=== PATIENT | female | born 1940 | race African-American/Black ===

== ENCOUNTER 2017-08-31 11:53 | Inpatient (IN) | payer MEDICARE, OTHER ==
[2017-08-31 12:54] LABS: ABSOLUTE EOSINOPHILS # (AUTO) 0.2 10^3/uL (0.0-0.6); ABSOLUTE LYMPHOCYTES (AUTO) 2.1 10^3/uL (0.5-4.7); ABSOLUTE MONOCYTES (AUTO) 0.6 10^3/uL (0.1-1.4); ABSOLUTE NEUT (AUTO) 3.4 10^3/uL (1.7-8.2); BASOPHILS % (AUTO) 0.3 % (0-2); EOSINOPHILS % (AUTO) 2.7 % (0-6); HEMATOCRIT 37.4 % (36.0-47.0); HEMOGLOBIN 12.9 g/dL (12.0-15.5); HGB HCT DIFFERENCE 1.3; LYMPHOCYTES % (AUTO) 33.1 % (13-45); MEAN CORPUSCULAR HEMOGLOBIN 31.9 pg (27.0-33.4); MEAN CORPUSCULAR HGB CONC 34.4 g/dL (32.0-36.0); MEAN CORPUSCULAR VOLUME 93 fl (80-97); MONOCYTES % (AUTO) 9.5 % (3-13); RED BLOOD COUNT 4.04 10^6/uL (3.72-5.28); RED CELL DISTRIBUTION WIDTH 15.5 % (11.5-14.0); SEGMENTED NEUTROPHILS % (AUTO) 54.4 % (42-78); WHITE BLOOD COUNT 6.2 10^3/uL (4.0-10.5)
[2017-08-31 13:03] LABS: ALANINE AMINOTRANSFERASE 22 U/L (9-52); ALBUMIN 3.6 g/dL (3.5-5.0); ALKALINE PHOSPHATASE 95 U/L (38-126); ANION GAP 15 (5-19); ASPARTATE AMINO TRANSFERASE 21 U/L (14-36); BILIRUBIN,DIRECT 0.4 mg/dL (0.0-0.4); BILIRUBIN,TOTAL 0.5 mg/dL (0.2-1.3); BLOOD UREA NITROGEN 12 mg/dL (7-20); CALCIUM 11.7 mg/dL (8.4-10.2); CARBON DIOXIDE 30 mmol/L (22-30); CHLORIDE 103 mmol/L (98-107); CREATINE KINASE 30 U/L (30-135); CREATININE RESULT 0.96 mg/dL (0.52-1.25); GLUCOSE 105 mg/dL (75-110); POTASSIUM 3.6 mmol/L (3.6-5.0); SODIUM 148.1 mmol/L (137-145); TOTAL PROTEIN 9.8 g/dL (6.3-8.2)
--- NOTE | 2017-08-31 13:07 | ER Document Report ---
ED Respiratory Problem - General Mode of Arrival: Ambulatory Information source: Patient TRAVEL OUTSIDE OF THE [place] IN LAST 30 DAYS: No <NATHALY REIS - Last Filed: 08/31/17 13:02> <JOSEFA BALDWIN - Last Filed: 08/31/17 15:50> - General Chief Complaint: Shortness Of Breath Stated Complaint: SHORTNESS OF BREATH Time Seen by Provider: 08/31/17 12:49 Notes: Patient is a 77-year-old male who presents to the emergency department today with complaints of shortness of breath. Patient states she was seen at [facility] urgent care on August 23 for diffuse muscle spasms and was diagnosed with pneumonia and put on Augmentin. Patient states she has been short of breath since his diagnosis. Patient states she recently had a back injection for her "muscle spasms". Patient states she has continued to have these muscle spasms. Patient is a poor historian so history is limited. (NATHALY REIS) - Related Data Allergies/Adverse Reactions: iodine Allergy (Intermediate, Verified 08/31/17 12:14) Past Medical History - General Information source: Patient - Social History Smoking Status: Never Smoker Cigarette use (# per day): No Chew tobacco use (# tins/day): No Frequency of alcohol use: None Drug Abuse: None Lives with: Family Family History: Reviewed & Not Pertinent Pulmonary Medical History: Reports: Hx Pneumonia Surgical Hx: Negative <NATHALY REIS - Last Filed: 08/31/17 13:02> Review of Systems - Review of Systems Constitutional: No symptoms reported EENT: No symptoms reported Cardiovascular: No symptoms reported Respiratory: See HPI, Short of breath Gastrointestinal: No symptoms reported Genitourinary: No symptoms reported Female Genitourinary: No symptoms reported Musculoskeletal: See HPI, Muscle stiffness Skin: No symptoms reported Hematologic/Lymphatic: No symptoms reported Neurological/Psychological: No symptoms reported -: Yes All other systems reviewed and negative <NATHALY REIS - Last Filed: 08/31/17 13:02> Physical Exam <NATHALY REIS - Last Filed: 08/31/17 13:02> - Respiratory Breath sounds: Rhonchi - The patient does have some rhonchi in the lower lung gonzales when she coughs. There also seems to be some E-A type changes noted more in the right base than the left. <DENNYJOSEFA - Last Filed: 08/31/17 15:50> - Vital signs Vitals: BP 138/76 H 08/31/17 12:10 - Notes Notes: Physical Exam: General: Alert, appears age appropriate. HEENT: Normocephalic. Atraumatic. PERRL. Extraocular movements intact. Oropharynx clear. Neck: Supple. Non-tender. Respiratory: No respiratory distress. Clear and equal breath sounds bilaterally. Cardiovascular: Regular rate and rhythm. Abdominal: Normal Inspection. Non-tender. No distension. Normal Bowel Sounds. Back: Non-tender. No deformity or step off. Extremities: Moves all four extremities. Upper extremities: Normal inspection. Normal ROM. Lower extremities: Normal inspection. No edema. Normal ROM. Neurological: Poor historian, baseline unknown. Normal speech. Psychological: Normal affect. Normal Mood. Skin: Warm. Dry. Normal color. (NATHALY REIS) Course - Laboratory Result Diagrams: 08/31/17 12:05 08/31/17 12:05 <NATHALY REIS - Last Filed: 08/31/17 13:02> - Laboratory Result Diagrams: 08/31/17 12:05 08/31/17 12:05 - Diagnostic Test Radiology reviewed: Image reviewed, Reports reviewed - Bilateral lower lobe airspace disease with small pleural effusions and mild cardiomegaly. - EKG Interpretation by De EKG shows normal: Sinus rhythm, [place], Intervals, QRS Complexes. abnormal: ST-T Waves - Inferior T wave abnormality Rate: Normal - 86 Rhythm: NSR [place]/QRS: Left axis deviation Voltage: Consistant with LVH When compared to previous EKG there are: Previous EKG unavailable - Consults Dr. Sheets Time consulted: 15:35 Consulted provider: will come to ER <DENNYJOSEFA - Last Filed: 08/31/17 15:50> - Vital Signs Vital signs: Temp Pulse Resp BP Pulse Ox 19 127/75 H 98 08/31/17 12:41 08/31/17 12:41 08/31/17 12:41 - Laboratory Laboratory results interpreted by me: 08/31/17 08/31/17 12:05 12:05 RDW 15.5 H Sodium 148.1 H Est GFR (Non-Af Amer) 56 L Calcium 11.7 H Total Protein 9.8 H Discharge <NATHALY REIS - Last Filed: 08/31/17 13:02> - Discharge Admitting Provider: Hospitalist Unit Admitted: Medical Floor <JOSEFA BALDWIN - Last Filed: 08/31/17 15:50> - Discharge Clinical Impression: Hypoxemia Pneumonia Qualifiers: Pneumonia type: due to unspecified organism Laterality: bilateral Lung location : lower lobe of lung Qualified Code(s): J18.9 - Pneumonia, unspecified organism Condition: Stable Disposition: ADMITTED INPATIENT Scribe Attestation: 08/31/17 15:50 I personally performed the services described in the documentation, reviewed and edited the documentation which was dictated to the scribe in my presence, and it accurately records my words and actions. (JOSEFA BALDWIN) Scribe Documentation - Scribe Written by Scribe:: Thomas Jauregui, 08/31/2017 1309 acting as scribe for :: Denny <NATHALY REIS - Last Filed: 08/31/17 13:02>
[2017-08-31 13:15] LABS: CREATINE KINASE MB 0.44 ng/mL (<4.55)
[2017-08-31 13:16] LABS: TROPONIN I < 0.012 ng/mL
--- NOTE | 2017-08-31 13:29 | RADIOLOGY REPORT (SQ) ---
EXAM DESCRIPTION: CHEST SINGLE VIEW COMPLETED DATE/TIME: 08/31/2017 12:52 pm REASON FOR STUDY: cp COMPARISON: None. EXAM PARAMETERS: NUMBER OF VIEWS: One view. TECHNIQUE: Single frontal radiographic view of the chest acquired. RADIATION DOSE: NA LIMITATIONS: Portable film FINDINGS: LUNGS AND PLEURA: Opacity at both the right and left lower hemithorax likely due to a comb ination of pleural effusions and bilateral lower lobe airspace disease. No pneumothorax MEDIASTINUM AND HILAR STRUCTURES: No masses. Contour normal. HEART AND VASCULAR STRUCTURES: Moderate cardiomegaly BONES: Osteoporotic HARDWARE: None in the chest. OTHER: No other significant finding. IMPRESSION: Opacified right and left lower hemithorax likely due to bilateral lower lobe airspace di sease and small pleural effusions TECHNICAL DOCUMENTATION: JOB ID: [id number]
[2017-08-31] MEDS ORDERED: LEVOFLOXACIN 750 MG/D5W RTU 750 MG/150 ML RTUPB IV ONE (15:24)
[2017-08-31] MEDS ORDERED: GUAIFENESIN SYRP 200 MG/10 ML UDC PO PRN (15:54)
[2017-08-31] MEDS ORDERED: LEVALBUTEROL HCL NEB 1.25 MG/3 ML AMPUL NEB PRN (15:54)
[2017-08-31 16:43] LABS: ARTERIAL BLOOD BASE EXCESS 5.4 mmol/L; ARTERIAL BLOOD O2 SATURATION 95.3 % (94-98)
[2017-08-31] MEDS ORDERED: BACLOFEN 10 MG TABLET PO PRN (17:03)
[2017-08-31] MEDS ORDERED: SENNOSIDES/DOCUSATE 8.6-50 MG 1 EACH TABLET PO PRN (17:15)
[2017-08-31] MEDS: ACETAMINOPHEN 325 MG TABLET PO PRN (17:19)
[2017-08-31] MEDS: FAMOTIDINE 20 MG TABLET PO SCH (21:35)
[2017-08-31] MEDS: GABAPENTIN 100 MG CAPSULE PO SCH (21:35)
[2017-09-01] MEDS ORDERED: 1/2 NORMAL SALINE 500 ML IV PRN (03:30)
[2017-09-01] MEDS ORDERED: 1/2 NORMAL SALINE 1,000 ML IV PRN (03:41)
--- NOTE | 2017-09-01 03:45 | PDOC H&P ---
History of Present Illness Admission Date/PCP: 08/31/17 Patient complains of: Shortness of breathe History of Present Illness: HEIDI PATE is a 77 year old female with no past medical history. At [place] urgent care, she was diagnosed and treated with Augmentin for which she completed the course yesterday. She went back there for a follow up and was told the pneumonia has not resolved and was told to come to [place] for further evaluation. Patient denies any fever or cough. Patient states she because short of breathe with activity today. She states ever since hearting her back earlier this year she has not been as active. She also noticed some swelling in her legs but states that happended after she was started on her antibiotics. Patient states that she does have some chest pain that shoots across and is sharp. It goes away quickly. She is not having any problems breathing or taking deep breathes. Per the ED is was sating in the 80's at urgent care, but she is maintaining her sats on 2 L of oxygen. She was given a dose of levaquin for bilateral airspace disease seen on chest X ray. Hospitalist called to admit patient for possible pneumonia. Past Medical History Cardiac Medical History: Reports: None Pulmonary Medical History: Reports: Pneumonia Musculoskeltal Medical History: Reports: Other - muscle spasms Past Surgical History Past Surgical History: Reports: Hysterectomy Social History Information Source: Patient Lives with: Family Smoking Status: Never Smoker Frequency of Alcohol Use: None Hx Recreational Drug Use: No Drugs: None - Advance Directive Resuscitation Status: Full Code Family History Family History: CAD Parental Family History Reviewed: No Children Family History Reviewed: No Sibling(s) Family History Reviewed.: No Medication/Allergy Home Medications: Acetaminophen [Tylenol Extra Strength] 1 tab PO Q6HP PRN 08/31/17 Amoxicillin/Potassium Clav [Augmentin 500-125 Tablet] 1 tab PO Q12 08/31/17 Calcium Carbonate/Vitamin D3 [Os-Mahamed 250 mg with Vitamin D 125 Units] 1 tab PO DAILY 08/31/17 Doans 2 tab PO Q6 08/31/17 L.acidoph,Paracasei, B.lactis [Probiotic] 1 cap PO DAILY 08/31/17 Allergies/Adverse Reactions: iodine Allergy (Intermediate, Verified 08/31/17 12:14) Review of Systems Constitutional: ABSENT: chills, fever(s), headache(s), weight gain, weight loss Eyes: ABSENT: visual disturbances Ears: ABSENT: hearing changes Cardiovascular: ABSENT: chest pain, dyspnea on exertion, edema, orthropnea, palpitations Respiratory: PRESENT: dyspnea. ABSENT: cough, hemoptysis Gastrointestinal: ABSENT: abdominal pain, constipation, diarrhea, hematemesis, hematochezia, nausea, vomiting Genitourinary: ABSENT: dysuria, hematuria Musculoskeletal: ABSENT: joint swelling Integumentary: ABSENT: rash, wounds Neurological: ABSENT: abnormal gait, abnormal speech, confusion, dizziness, focal weakness, syncope Psychiatric: ABSENT: anxiety, depression, homidical ideation, suicidal ideation Endocrine: ABSENT: cold intolerance, heat intolerance, polydipsia, polyuria Hematologic/Lymphatic: ABSENT: easy bleeding, easy bruising Physical Exam Vital Signs: Temp Pulse Resp BP Pulse Ox 19 127/75 H 98 08/31/17 12:41 08/31/17 12:41 08/31/17 12:41 General appearance: PRESENT: mild distress, well-developed Head exam: PRESENT: normocephalic Eye exam: PRESENT: conjunctival injection Ear exam: PRESENT: normal external ear exam Mouth exam: PRESENT: moist Neck exam: PRESENT: full ROM. ABSENT: carotid bruit, JVD, lymphadenopathy, thyromegaly Respiratory exam: PRESENT: clear to auscultation kim, crackles - at lung bases. ABSENT: rhonchi, wheezes Cardiovascular exam: PRESENT: RRR. ABSENT: diastolic murmur, rubs, systolic murmur Pulses: PRESENT: normal dorsalis pedis pul Vascular exam: PRESENT: normal capillary refill GI/Abdominal exam: PRESENT: normal bowel sounds, soft. ABSENT: distended, guarding, mass, organolmegaly, rebound, tenderness Rectal exam: PRESENT: deferred Extremities exam: PRESENT: full ROM, pedal edema. ABSENT: calf tenderness, clubbing Neurological exam: PRESENT: alert, awake, oriented to person, oriented to place , oriented to time, oriented to situation, CN II-XII grossly intact. ABSENT: motor sensory deficit Psychiatric exam: PRESENT: appropriate affect, normal mood. ABSENT: homicidal ideation, suicidal ideation Skin exam: PRESENT: dry, intact, warm. ABSENT: cyanosis, rash Results Laboratory Results: 08/31/17 12:05 08/31/17 12:05 08/31/17 08/31/17 12:05 12:05 WBC 6.2 RBC 4.04 Hgb 12.9 Hct 37.4 MCV 93 MCH 31.9 MCHC 34.4 RDW 15.5 H Plt Count 155 Seg Neutrophils % 54.4 Lymphocytes % 33.1 Monocytes % 9.5 Eosinophils % 2.7 Basophils % 0.3 Absolute Neutrophils 3.4 Absolute Lymphocytes 2.1 Absolute Monocytes 0.6 Absolute Eosinophils 0.2 Absolute Basophils 0.0 Sodium 148.1 H Potassium 3.6 Chloride 103 Carbon Dioxide 30 Anion Gap 15 BUN 12 Creatinine 0.96 Est GFR ( Amer) > 60 Est GFR (Non-Af Amer) 56 L Glucose 105 Calcium 11.7 H Total Bilirubin 0.5 AST 21 ALT 22 Alkaline Phosphatase 95 Total Protein 9.8 H Albumin 3.6 08/31/17 08/31/17 08/31/17 12:05 12:05 12:05 Creatine Kinase 30 CK-MB (CK-2) 0.44 Troponin I < 0.012 NT-Pro-B Natriuret Pep 125 Impressions: Chest X-Ray 08/31/17 12:23 IMPRESSION: Opacified right and left lower hemithorax likely due to bilateral lower lobe airspace disease and small pleural effusions Assessment & Plan - Diagnosis (1) Dyspnea on exertion Is this a current diagnosis for this admission?: Yes Plan: Patient states that this is new in nature. Patient has been less active over that last several month and reports some swelling of the feet. She is hypoxic and complains of intermittent chest pain. D dimer is elevated. Will check VQ scan. Patient has swelling with iodine therefore CTA chest cannot be done. Will also check venous dopplers as she report recent leg swelling. Will also check echo. Will start patient on therapeutic dosages of lovenox. Will need to follow up on patients weight and adjust dose accordingly. (2) Hypoxemia Is this a current diagnosis for this admission?: Yes Plan: Continue supplemental oxygen. VQ scan ordered to evaluate for PE. Patient cannot have CTA and patient swells when she is around shellfish. 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 Patient is seeing a recruitment specialist for injection. Patient is complaining of pain now. Will order low dose baclofen, tylenol and gabapentin for pain. Patient does not want anything stronger for pain. (4) Pneumonia Qualifiers: Pneumonia type: due to unspecified organism Laterality: bilateral Lung location: lower lobe of lung Qualified Code(s): J18.9 - Pneumonia, unspecified organism Is this a current diagnosis for this admission?: Yes Plan: Chest XR shows bilateral airspace disease. Patient has already completed a course of antibiotics with augmentin (last dose 08/30) and does not have any fever, cough or leukocytosis. Blood cultures were drawn and pending. Patient was given a dose of levaquin. Will not give any antibiotics. Will monitor of symptoms and treat if necessary. (5) Hypercalcemia Plan: Secondary to dehydration and supplement. Will give gentle hydration and encourage patient to drink. Will also give loop diuretic. Will check PTH and vitamin D. Alkphos is not elevated. Will also check phospherous level. (6) Hypernatremia Is this a current diagnosis for this admission?: Yes Plan: Due to dehydration. Fluid resuscitate and follow up chemistry. (7) Constipation Qualifiers: Constipation type: chronic idiopathic constipation Qualified Code(s): K59.04 - Chronic idiopathic constipation Is this a current diagnosis for this admission?: Yes Plan: Due to dehydration and hypercalcemia. Encourage po intake. Give some IV fluids. - Time Time Spent: 30 to 50 Minutes Medications reviewed and adjusted accordingly: Yes Anticipated discharge: Home Within: within 48 hours
[2017-09-01] MEDS: GABAPENTIN 100 MG CAPSULE PO SCH ×3 (06:57→21:28)
--- NOTE | 2017-09-01 07:51 | RADIOLOGY REPORT (SQ) ---
EXAM DESCRIPTION: NM LUNG PERFUSION SCAN COMPLETED DATE/TIME: 09/01/2017 7:43 am REASON FOR STUDY: SOB COMPARISON: Chest radiograph 08/31/2017 RADIONUCLIDE AND DOSE: 5.26 millicuries TC-99m MAA The route of agent administration: Intravenous TECHNIQUE: Eight views of the lungs acquired following injection of MAA. LIMITATIONS: None. FINDINGS: PERFUSION: Perfusion defects at both lung bases.. OTHER: No other significant finding. IMPRESSION: Indeterminate for pulmonary emboli. Profusion defects at both lung bases at the site of parenchymal opacities. TECHNICAL DOCUMENTATION: JOB ID: [id number] [employer]- All Rights Reserved
[2017-09-01 09:08] LABS: ANION GAP 11 (5-19); BLOOD UREA NITROGEN 12 mg/dL (7-20); CALCIUM 10.8 mg/dL (8.4-10.2); CARBON DIOXIDE 30 mmol/L (22-30); CHLORIDE 105 mmol/L (98-107); CREATININE RESULT 0.97 mg/dL (0.52-1.25); GLUCOSE 100 mg/dL (75-110); POTASSIUM 3.4 mmol/L (3.6-5.0); SODIUM 145.8 mmol/L (137-145)
[2017-09-01] MEDS: APIXABAN 5 MG TABLET PO SCH ×2 (09:33→18:16)
[2017-09-01] MEDS: FAMOTIDINE 20 MG TABLET PO SCH ×2 (09:34→21:28)
[2017-09-01] MEDS: LACTOBACILLUS ACIDOPHILUS 250 MG TAB PO SCH ×2 (09:35→18:16)
[2017-09-01] MEDS: SENNOSIDES/DOCUSATE 8.6-50 MG 1 EACH TABLET PO SCH ×2 (09:35→18:17)
[2017-09-01] MEDS ORDERED: APIXABAN 5 MG TABLET PO SCH (10:00)
[2017-09-01] MEDS ORDERED: CEFTRIAXONE 1 GM/D5W RTU 1 GM/50 ML RTUPB IV SCH (10:00)
[2017-09-01] MEDS ORDERED: ENOXAPARIN SODIUM INJ 80 MG/0.8 ML DISP.SYRIN SUBCUT SCH (10:00)
[2017-09-01] MEDS ORDERED: FUROSEMIDE INJ/PF 20 MG/2 ML SDV IV SCH ×3 (10:00→11:37)
[2017-09-01] MEDS ORDERED: AZITHROMYCIN 250 MG TABLET PO SCH (10:00)
[2017-09-01] MEDS ORDERED: FUROSEMIDE 20 MG TABLET PO SCH (10:00)
[2017-09-01] MEDS ORDERED: BACLOFEN 10 MG TABLET PO SCH (10:00)
[2017-09-01] MEDS ORDERED: FUROSEMIDE INJ/PF 40 MG/4 ML SDV IV SCH (10:00)
[2017-09-01 10:51] LABS: APPEARANCE,URINE CLEAR; BILIRUBIN,URINE NEGATIVE (NEGATIVE); GLUCOSE, URINE NEGATIVE (NEGATIVE); KETONES,URINE NEGATIVE (NEGATIVE); LEUKOCYTE ESTERASE,URINE NEGATIVE (NEGATIVE); NITRITE,URINE NEGATIVE (NEGATIVE); PROTEIN,URINE NEGATIVE (NEGATIVE); URINE SPECIFIC GRAVITY 1.009; UROBILINOGEN,URINE NEGATIVE mg/dL (<2.0)
[2017-09-01] MEDS ORDERED: MAGNESIUM HYDROXIDE SUSP 30 ML UDCUP PO ONE (17:10)
--- NOTE | 2017-09-01 17:18 | PDOC PROGRESS REPORT ---
Subjective Progress Note for:: 09/01/17 Subjective:: Patient seen earlier today on morning rounds with daughter and son at bedside. Patient has not had a bowel movement since Saturday of last week. Patient denied any antecedent illness, fever, chills, purulent sputum before admission. Patient reports white sputum. Patient admits to dyspnea on exertion. Patient denies chest pain, shortness of breath, abdominal pain, nausea, vomiting , fevers, chills, diarrhea, headache. Physical Exam Vital Signs: Temp Pulse Resp BP Pulse Ox 98.4 F 76 20 112/61 97 09/01/17 12:04 09/01/17 12:04 09/01/17 12:04 09/01/17 12:04 09/01/17 12:05 Pulse Oximeter Continuous Start: 08/31/17 15: 55 Freq: RTQ4 Status: Active Document 09/01/17 12:05 TPO (Rec: 09/01/17 12:15 TPO [email or web address]) Pulse Oximetry Assessment Oxygen Saturation (92-100) 97 Oxygen Flow Rate (L/min) 2 Oxygen Delivery Method Nasal Cannula Fraction of Inspired Oxygen (FIO2) 28 Equipment Usage Equipment in Use Continuous SpO2 Machine # 13 Intake & Output 08/31/17 09/01/17 09/02/17 06:59 06:59 06:59 Output Total 800 Balance -800 Weight 69.6 kg Exam: General: Awake alert and oriented x3, no acute respiratory distress HEENT: AT/NC, PERRL, EOMI, oropharynx is moist, pink, no scleral icterus, no conjunctival injection Neck: No JVD, trachea midline Chest: limited by pleuritic pain, bilateral crackles CV: Regular rate and rhythm, normal S1 and S2, no rub, or gallop Abdomen: Soft, nontender to palpation, nondistended, hypoactive bowel sounds; no rebound, rigidity, or guarding Extremities: No cyanosis, clubbing; trace edema Neuro: Cranial nerves II through XII are grossly intact without focal deficits; awake alert and oriented x3 Psych: Normal mood and affect Results Laboratory Results: 09/01/17 08:36 09/01/17 09/01/17 09/01/17 08:36 08:36 10:08 Sodium 145.8 H Potassium 3.4 L Chloride 105 Carbon Dioxide 30 Anion Gap 11 BUN 12 Creatinine 0.97 Est GFR ( Amer) > 60 Est GFR (Non-Af Amer) 56 L Glucose 100 Calcium 10.8 H Ionized Calcium Rocio 1.31 H Urine Color YELLOW Urine Appearance CLEAR Urine pH 6.0 Ur Specific [place] 1.009 Urine Protein NEGATIVE Urine Glucose (UA) NEGATIVE Urine Ketones NEGATIVE Urine Blood SMALL H Urine Nitrite NEGATIVE Ur Leukocyte Esterase NEGATIVE Urine WBC (Auto) 1 Urine RBC (Auto) 0 08/31/17 17:25 Troponin I < 0.012 Impressions: Chest X-Ray 08/31/17 12:23 IMPRESSION: Opacified right and left lower hemithorax likely due to bilateral lower lobe airspace disease and small pleural effusions Lung Scan-VQ NM 09/01/17 00:00 IMPRESSION: Indeterminate for pulmonary emboli. Profusion defects at both lung bases at the site of parenchymal opacities. Assessment & Plan - Diagnosis (1) Dyspnea on exertion Is this a current diagnosis for this admission?: Yes Plan: Concerned that this represents acute cor pulmonale or acute on chronic diastolic congestive heart failure. Repeat chest x-ray. Patient was treated as an outpatient for pneumonia, but patient has no associated symptomatology consistent with this. Have considered interstitial lung disease. (2) Hypercalcemia Is this a current diagnosis for this admission?: Yes Plan: Patient reports that she is taking a calcium supplement as an outpatient. Ionized calcium is elevated. Obtain PTH and intact PTH. Check vitamin D. (3) Hypernatremia Is this a current diagnosis for this admission?: Yes (4) Hypoxemia Is this a current diagnosis for this admission?: Yes Plan: Still concern exists for pulmonary embolus. Patient's VQ scan was indeterminate. Will perform a bilateral lower extremity ultrasound and if this is positive this will confirm her diagnosis. Continue Eliquis. However, if this is negative will consider pre-medicating for a CTA. (5) Muscle pain Is this a current diagnosis for this admission?: Yes Plan: Concerned that this is secondary to hypercalcemia. Consider Flexeril (6) Constipation Qualifiers: Constipation type: chronic idiopathic constipation Qualified Code(s): K59.04 - Chronic idiopathic constipation Is this a current diagnosis for this admission?: Yes Plan: We will give patient senna and Colace. Also milk of magnesia. - Time Time Spent with patient: 25-34 minutes Medications reviewed and adjusted accordingly: Yes
[2017-09-01] MEDS: FUROSEMIDE INJ/PF 40 MG/4 ML SDV IV SCH (18:16)
--- NOTE | 2017-09-01 20:23 | RADIOLOGY REPORT (SQ) ---
EXAM DESCRIPTION: VENOUS BILATERAL LOWER COMPLETED DATE/TIME: 09/01/2017 8:11 pm REASON FOR STUDY: indeterminate vq, hypoxia COMPARISON: None. TECHNIQUE: Dynamic and static wilburn scale and color images acquired of both lower extremity venous sy stems. Selected spectral images acquired with additional compression and augmentation maneuvers. Imag es stored on PACS. LIMITATIONS: None. FINDINGS: RIGHT LEG COMMON FEMORAL AND FEMORAL: Normal phasicity, compression and augmentation. No visualized echogenic m aterial on wilburn scale. No defects on color images. POPLITEAL: Normal compression and augmentation. No visualized echogenic material on wilburn scale. No de fects on color images. CALF VESSELS: Normal compression and augmentation. No visualized echogenic material on wilburn scale. No defects on color image. GSV AND SSV: Normal compression. No visualized echogenic material on wilburn scale. No defects on color images. ANY DEEP VENOUS INSUFFICIENCY: Not evaluated. ANY EVIDENCE OF POPLITEAL CYST: No. OTHER: No other significant finding. LEFT LEG COMMON FEMORAL AND FEMORAL: Normal phasicity, compression and augmentation. No visualized echogenic m aterial on wilburn scale. No defects on color images. POPLITEAL: Normal compression and augmentation. No visualized echogenic material on wilburn scale. No de fects on color images. CALF VESSELS: Normal compression and augmentation. No visualized echogenic material on wilburn scale. No defects on color images. GSV AND SSV: Normal compression. No visualized echogenic material on wilburn scale. No defects on color images. ANY DEEP VENOUS INSUFFICIENCY: Not evaluated. ANY EVIDENCE POPLITEAL CYST: No. OTHER: No other significant finding. IMPRESSION: NO EVIDENCE DVT OR SVT IN EITHER LEG. TECHNICAL DOCUMENTATION: JOB ID: [id number] [employer]- All Rights Reserved
--- NOTE | 2017-09-01 20:33 | RADIOLOGY REPORT (SQ) ---
EXAM DESCRIPTION: CHEST PA/LAT COMPLETED DATE/TIME: 09/01/2017 6:59 pm REASON FOR STUDY: ?chf v pna COMPARISON: None. EXAM PARAMETERS: NUMBER OF VIEWS: two views TECHNIQUE: Digital Frontal and Lateral radiographic views of the chest acquired. RADIATION DOSE: NA LIMITATIONS: none FINDINGS: LUNGS AND PLEURA: Bilateral lower lobe consolidation-atelectasis. Small bilateral pleural effusions. MEDIASTINUM AND HILAR STRUCTURES: Age-appropriate contour. HEART AND VASCULAR STRUCTURES: Cardiomegaly. BONES: No acute findings. HARDWARE: None in the chest. OTHER: No other significant finding. IMPRESSION: Bilateral lower lobe consolidation-atelectasis. Small bilateral pleural effusions. TECHNICAL DOCUMENTATION: JOB ID: [id number] [employer]- All Rights Reserved
[2017-09-01] MEDS: ACETAMINOPHEN 325 MG TABLET PO PRN (21:28)
[2017-09-02] MEDS ORDERED: FLUTICASONE NASAL SPRAY 50 MCG/SPRY 120 SPRAY/16 GM NASL ONE (06:15)
[2017-09-02] MEDS ORDERED: FLUTICASONE NASAL SPRAY 50 MCG/SPRY 120 SPRAY/16 GM ONE (06:48)
[2017-09-02] MEDS: GABAPENTIN 100 MG CAPSULE PO SCH ×3 (06:50→22:24)
[2017-09-02 07:46] LABS: HEMATOCRIT 33.1 % (36.0-47.0); HEMOGLOBIN 11.2 g/dL (12.0-15.5); HGB HCT DIFFERENCE 0.5; MEAN CORPUSCULAR HEMOGLOBIN 31.2 pg (27.0-33.4); MEAN CORPUSCULAR HGB CONC 33.7 g/dL (32.0-36.0); MEAN CORPUSCULAR VOLUME 93 fl (80-97); RED BLOOD COUNT 3.58 10^6/uL (3.72-5.28); RED CELL DISTRIBUTION WIDTH 15.5 % (11.5-14.0); WHITE BLOOD COUNT 5.8 10^3/uL (4.0-10.5)
[2017-09-02 08:25] LABS: ANION GAP 10 (5-19); BLOOD UREA NITROGEN 12 mg/dL (7-20); CALCIUM 10.5 mg/dL (8.4-10.2); CARBON DIOXIDE 34 mmol/L (22-30); CHLORIDE 100 mmol/L (98-107); CREATININE RESULT 0.97 mg/dL (0.52-1.25); GLUCOSE 109 mg/dL (75-110); PHOSPHORUS 3.8 mg/dL (2.5-4.5); POTASSIUM 3.6 mmol/L (3.6-5.0)
[2017-09-02] MEDS: SENNOSIDES/DOCUSATE 8.6-50 MG 1 EACH TABLET PO SCH ×2 (10:26→18:05)
[2017-09-02] MEDS: FAMOTIDINE 20 MG TABLET PO SCH ×2 (10:26→22:24)
[2017-09-02] MEDS: FUROSEMIDE INJ/PF 40 MG/4 ML SDV IV SCH ×2 (10:26→18:05)
[2017-09-02] MEDS: LACTOBACILLUS ACIDOPHILUS 250 MG TAB PO SCH ×2 (10:26→18:05)
[2017-09-02] MEDS ORDERED: ENOXAPARIN SODIUM INJ 80 MG/0.8 ML DISP.SYRIN SUBCUT ONE (10:45)
[2017-09-02] MEDS: ENOXAPARIN SODIUM INJ 80 MG/0.8 ML DISP.SYRIN SUBCUT SCH ×2 (11:42→22:24)
[2017-09-02] MEDS: ACETAMINOPHEN 325 MG TABLET PO PRN ×2 (13:08→18:34)
--- NOTE | 2017-09-02 16:57 | PDOC PROGRESS REPORT ---
Subjective Progress Note for:: 09/02/17 Subjective:: Patient seen earlier today on morning rounds with daughter at bedside. Patient has not had a bowel movement since Saturday of last week. Patient denied any antecedent illness, fever, chills, purulent sputum before admission. Patient reports white sputum. Patient admits to dyspnea on exertion. Patient was noted to have profound hypoxia with exertion. Patient denies chest pain, abdominal pain, nausea, vomiting, fevers, chills, diarrhea, headache. Physical Exam Vital Signs: Temp Pulse Resp BP Pulse Ox 98.2 F 80 18 114/59 L 99 09/02/17 12:00 09/02/17 12:00 09/02/17 12:00 09/02/17 12:00 09/02/17 16:00 Pulse Oximeter Continuous Start: 08/31/17 15: 55 Freq: RTQ4 Status: Active Document 09/02/17 16:00 LDA (Rec: 09/02/17 16:27 LDA [email or web address]) Pulse Oximetry Assessment Oxygen Saturation (92-100) 99 Oxygen Flow Rate (L/min) 4 Oxygen Delivery Method Nasal Cannula Equipment Usage Equipment in Use Continuous SpO2 Machine # 13 Intake & Output 09/01/17 09/02/17 09/03/17 06:59 06:59 06:59 Intake Total 350 Output Total 800 450 Balance -800 -100 Weight 69.6 kg Exam: General: Awake alert and oriented x3, no acute respiratory distress HEENT: AT/NC, PERRL, EOMI, oropharynx is moist, pink, no scleral icterus, no conjunctival injection Neck:+ JVD, trachea midline Chest: limited by pleuritic pain, bilateral crackles CV: Regular rate and rhythm, normal S1 and S2, no rub, or gallop Abdomen: Soft, tender to palpation midepigastrium, mildly distended, hypoactive bowel sounds; no rebound, rigidity, or guarding Extremities: No cyanosis, clubbing; trace edema Neuro: Cranial nerves II through XII are grossly intact without focal deficits; awake alert and oriented x3 Psych: Normal mood and affect Results Laboratory Results: 09/02/17 07:25 09/02/17 07:25 09/02/17 09/02/17 07:25 07:25 WBC 5.8 RBC 3.58 L Hgb 11.2 L Hct 33.1 L MCV 93 MCH 31.2 MCHC 33.7 RDW 15.5 H Plt Count 165 Sodium 144.0 Potassium 3.6 Chloride 100 Carbon Dioxide 34 H Anion Gap 10 BUN 12 Creatinine 0.97 Est GFR ( Amer) > 60 Est GFR (Non-Af Amer) 56 L Glucose 109 Calcium 10.5 H Phosphorus 3.8 08/31/17 17:25 Troponin I < 0.012 Impressions: Chest X-Ray 09/01/17 00:00 IMPRESSION: Bilateral lower lobe consolidation-atelectasis. Small bilateral pleural effusions. Lung Scan-VQ NM 09/01/17 00:00 IMPRESSION: Indeterminate for pulmonary emboli. Profusion defects at both lung bases at the site of parenchymal opacities. Venous Doppler Study 09/01/17 17:01 IMPRESSION: NO EVIDENCE DVT OR SVT IN EITHER LEG. Assessment & Plan - Diagnosis (1) Dyspnea on exertion Is this a current diagnosis for this admission?: Yes Plan: Concerned that this represents acute cor pulmonale or acute on chronic diastolic congestive heart failure. Repeat chest x-ray reveals atelectasis with effusions. Patient was treated as an outpatient for pneumonia, but patient has no associated symptomatology consistent with this. Have considered interstitial lung disease. Currently pending echo, but this if this is unrevealing will consider high-res CT of the chest without contrast. (2) Hypercalcemia Is this a current diagnosis for this admission?: Yes Plan: Patient reports that she is taking a calcium supplement as an outpatient. Ionized calcium is elevated. Pending PTH and intact PTH. Pending vitamin D. Improving with Lasix (3) Hypernatremia Is this a current diagnosis for this admission?: Yes (4) Hypoxemia Is this a current diagnosis for this admission?: Yes (5) Muscle pain Is this a current diagnosis for this admission?: Yes (6) Constipation Qualifiers: Constipation type: chronic idiopathic constipation Qualified Code(s): K59.04 - Chronic idiopathic constipation Is this a current diagnosis for this admission?: Yes - Time Time Spent with patient: 25-34 minutes Medications reviewed and adjusted accordingly: Yes
[2017-09-03 05:09] LABS: ABSOLUTE EOSINOPHILS # (AUTO) 0.2 10^3/uL (0.0-0.6); ABSOLUTE LYMPHOCYTES (AUTO) 2.4 10^3/uL (0.5-4.7); ABSOLUTE MONOCYTES (AUTO) 0.6 10^3/uL (0.1-1.4); ABSOLUTE NEUT (AUTO) 2.5 10^3/uL (1.7-8.2); BASOPHILS % (AUTO) 0.5 % (0-2); HEMATOCRIT 33.9 % (36.0-47.0); HEMOGLOBIN 11.7 g/dL (12.0-15.5); HGB HCT DIFFERENCE 1.2; LYMPHOCYTES % (AUTO) 41.8 % (13-45); MEAN CORPUSCULAR HEMOGLOBIN 31.7 pg (27.0-33.4); MEAN CORPUSCULAR HGB CONC 34.5 g/dL (32.0-36.0); MEAN CORPUSCULAR VOLUME 92 fl (80-97); RED CELL DISTRIBUTION WIDTH 15.5 % (11.5-14.0); SEGMENTED NEUTROPHILS % (AUTO) 43.7 % (42-78); WHITE BLOOD COUNT 5.6 10^3/uL (4.0-10.5)
[2017-09-03] MEDS: GABAPENTIN 100 MG CAPSULE PO SCH ×3 (05:23→21:15)
[2017-09-03 05:26] LABS: ANION GAP 10 (5-19); BLOOD UREA NITROGEN 15 mg/dL (7-20); CALCIUM 10.8 mg/dL (8.4-10.2); CARBON DIOXIDE 34 mmol/L (22-30); CHLORIDE 100 mmol/L (98-107); CREATININE RESULT 1.07 mg/dL (0.52-1.25); GLUCOSE 108 mg/dL (75-110); POTASSIUM 3.7 mmol/L (3.6-5.0)
[2017-09-03 08:13] LABS: VITAMIN D 25-HYDROXY 19.4 ng/mL (30.0-100.0)
[2017-09-03 09:09] LABS: APPEARANCE,URINE CLOUDY; BILIRUBIN,URINE NEGATIVE (NEGATIVE); GLUCOSE, URINE NEGATIVE (NEGATIVE); KETONES,URINE NEGATIVE (NEGATIVE); LEUKOCYTE ESTERASE,URINE NEGATIVE (NEGATIVE); NITRITE,URINE NEGATIVE (NEGATIVE); PROTEIN,URINE 30 mg/dL (NEGATIVE); URINE SPECIFIC GRAVITY 1.014; UROBILINOGEN,URINE NEGATIVE mg/dL (<2.0)
[2017-09-03] MEDS: ACETAMINOPHEN 325 MG TABLET PO PRN ×2 (10:15→21:15)
[2017-09-03] MEDS: LACTOBACILLUS ACIDOPHILUS 250 MG TAB PO SCH ×2 (10:16→17:05)
[2017-09-03] MEDS: FAMOTIDINE 20 MG TABLET PO SCH ×2 (10:16→21:15)
[2017-09-03] MEDS: SENNOSIDES/DOCUSATE 8.6-50 MG 1 EACH TABLET PO SCH ×2 (10:16→17:05)
[2017-09-03] MEDS: FUROSEMIDE INJ/PF 40 MG/4 ML SDV IV SCH ×2 (10:16→17:05)
[2017-09-03] MEDS: FLUTICASONE NASAL SPRAY 50 MCG/SPRY 120 SPRAY/16 GM NASL SCH (10:17)
[2017-09-03] MEDS: ENOXAPARIN SODIUM INJ 80 MG/0.8 ML DISP.SYRIN SUBCUT SCH ×2 (10:23→21:15)
--- NOTE | 2017-09-03 10:45 | XCELERA REPORT ---
[address] [address] Transthoracic Echocardiogram Report Name: HEIDI PATE Age: 77 yrs Gender: Female : 1940 Patient Status: Inpatient Patient Location: [address] [place] [address] Study Date: 09/02/2017 01:40 PM Height: 66 in Weight: 153 lb BSA: 1.8 m2 Procedure: A complete two-dimensional transthoracic echocardiogram was performed (2D, M-mode, spectral and color flow Doppler). The study was technically difficult with many images being suboptimal in quality. Reason For Study: SOB Ordering Physician: OBI LORA Performed By: Alxe Hammond Interpretation Summary The study was technically difficult with many images being suboptimal in quality. The left ventricular ejection fraction is preserved. There is mild concentric left ventricular hypertrophy. Consider additional methods to assess LVEF such as MUGA scan, CTA heart, cardiac MRI, KULWANT, etc. if clinically indicated. The left ventricle is grossly normal size. Regional wall motion abnormalities cannot be excluded due to limited visualization. Not all wall segments were well visualized. The right ventricle appears to be hypertrophied The right ventricle is mild to moderately dilated. The right ventricular systolic function is borderline reduced. The right atrium is normal in size There is a trace amount of mitral regurgitation There is no mitral valve stenosis. There is a mild amount of aortic regurgitation There is no aortic valve stenosis There is a trace or physiologic amount of tricuspid regurgitation Tricuspid regurgitation jet envelope not well defined to measure RV systolic pressure accurately. The aortic root is not well visualized. The inferior vena cava was not well visualized There is no pericardial effusion. MMode/2D Measurements & Calculations RVDd: 2.2 cm LVIDd: 4.0 cm FS: 34.7 % Ao root diam: 3.8 cm IVSd: 1.2 cm LVIDs: 2.6 cm EDV(Teich): 68.6 ml LVPWd: 1.2 cm ESV(Teich): 24.3 ml Ao root area: 11.3 cm2 EF(Teich): 64.5 % LA dimension: 2.9 cm Doppler Measurements & Calculations MV E max ramon: MV P1/2t max ramon: Ao V2 max: AI max ramon: 80.1 cm/sec 79.7 cm/sec 113.8 cm/sec 278.2 cm/sec MV A max ramon: MV P1/2t: 46.9 msec Ao max PG: AI max P.7 cm/sec 5.2 mmHg 31.7 mmHg MV E/A: 1.4 MVA(P1/2t): 4.7 cm2 AI dec slope: MV dec slope: 497.4 cm/sec2 155.8 cm/sec2 AI P1/2t: 523.0 msec LV V1 max PG: PA V2 max: TR max ramon: RAP systole: 2.8 mmHg 79.5 cm/sec 247.5 cm/sec 5.0 mmHg LV V1 max: PA max P.5 mmHg TR max P.9 cm/sec 24.8 mmHg RVSP(TR): 29.8 mmHg Left Ventricle The left ventricle is grossly normal size. There is mild concentric left ventricular hypertrophy. The left ventricular ejection fraction is preserved. Consider additional methods to assess LVEF such as MUGA scan, CTA heart, cardiac MRI, KULWANT, etc. if clinically indicated. Doppler measurements suggest pseudonormalized left ventricular relaxation, which is associated with grade II/IV or mild to moderate diastolic dysfunction. Regional wall motion abnormalities cannot be excluded due to limited visualization. Not all wall segments were well visualized. Right Ventricle The right ventricle is mild to moderately dilated. The right ventricle appears to be hypertrophied. The right ventricular systolic function is borderline reduced. Atria The right atrium is normal in size. The left atrial size is normal. Interarterial septum not well visualized and not well dopplered. Cannot comment on ASD/PFO presence. Mitral Valve The mitral valve is grossly normal. There is no mitral valve stenosis. There is a trace amount of mitral regurgitation. Aortic Valve The aortic valve is grossly normal. There is no aortic valve stenosis. There is a mild amount of aortic regurgitation. Tricuspid Valve The tricuspid valve is not well visualized secondary to technical limitations. There is no tricuspid stenosis. There is a trace or physiologic amount of tricuspid regurgitation. Tricuspid regurgitation jet envelope not well defined to measure RV systolic pressure accurately. Pulmonic Valve The pulmonic valve is not well visualized. Great Vessels The aortic root is not well visualized. The inferior vena cava was not well visualized. Effusions There is no pericardial effusion. : OBI LORA > Ken Morrison
--- NOTE | 2017-09-03 17:35 | PDOC PROGRESS REPORT ---
Subjective Progress Note for:: 09/03/17 Subjective:: Pt states that she is doing much better. Pt states that she takes calcium supplementation at home. Physical Exam Vital Signs: Temp Pulse Resp BP Pulse Ox 98.6 F 83 18 113/59 L 95 09/03/17 15:40 09/03/17 15:40 09/03/17 15:40 09/03/17 15:40 09/03/17 16:39 Pulse Oximeter Continuous Start: 08/31/17 15: 55 Freq: RTQ4 Status: Active Document 09/03/17 16:39 TPO (Rec: 09/03/17 16:40 TPO [email or web address]) Pulse Oximetry Assessment Oxygen Saturation (92-100) 95 Oxygen Flow Rate (L/min) 3 Oxygen Delivery Method Nasal Cannula Fraction of Inspired Oxygen (FIO2) 32 Equipment Usage Equipment in Use Continuous SpO2 Machine # 13 Intake & Output 09/02/17 09/03/17 09/04/17 06:59 06:59 06:59 Intake Total 350 550 Output Total 450 Balance -100 550 Weight 69.5 kg General appearance: PRESENT: no acute distress, well-developed, well-nourished Head exam: PRESENT: atraumatic, normocephalic Eye exam: PRESENT: conjunctiva pink, EOMI. ABSENT: scleral icterus Ear exam: PRESENT: normal external ear exam Mouth exam: PRESENT: moist, tongue midline Neck exam: ABSENT: carotid bruit, JVD, lymphadenopathy, thyromegaly Respiratory exam: PRESENT: clear to auscultation kim, rhonchi. ABSENT: rales Cardiovascular exam: PRESENT: RRR. ABSENT: diastolic murmur, rubs, systolic murmur Pulses: PRESENT: normal dorsalis pedis pul Vascular exam: PRESENT: normal capillary refill GI/Abdominal exam: PRESENT: normal bowel sounds, soft. ABSENT: distended, guarding, mass, organolmegaly, rebound, tenderness Rectal exam: PRESENT: deferred Extremities exam: PRESENT: full ROM. ABSENT: calf tenderness, clubbing, pedal edema Neurological exam: PRESENT: alert, awake, oriented to person, oriented to place , oriented to time, oriented to situation, CN II-XII grossly intact. ABSENT: motor sensory deficit Psychiatric exam: PRESENT: appropriate affect, normal mood. ABSENT: homicidal ideation, suicidal ideation Skin exam: PRESENT: dry, intact, warm. ABSENT: cyanosis, rash Results Laboratory Results: 09/03/17 04:19 09/03/17 04:19 09/02/17 09/03/17 09/03/17 07:25 04:19 04:19 WBC 5.6 RBC 3.70 L Hgb 11.7 L Hct 33.9 L MCV 92 MCH 31.7 MCHC 34.5 RDW 15.5 H Plt Count 154 Seg Neutrophils % 43.7 Lymphocytes % 41.8 Monocytes % 10.0 Eosinophils % 4.0 Basophils % 0.5 Absolute Neutrophils 2.5 Absolute Lymphocytes 2.4 Absolute Monocytes 0.6 Absolute Eosinophils 0.2 Absolute Basophils 0.0 Sodium 144.0 Potassium 3.7 Chloride 100 Carbon Dioxide 34 H Anion Gap 10 BUN 15 Creatinine 1.07 Est GFR ( Amer) > 60 Est GFR (Non-Af Amer) 50 L Glucose 108 Calcium 10.8 H Magnesium 2.0 PTH Intact 15 Urine Color Urine Appearance Urine pH Ur Specific [place] Urine Protein Urine Glucose (UA) Urine Ketones Urine Blood Urine Nitrite Ur Leukocyte Esterase Urine WBC (Auto) Urine RBC (Auto) 09/03/17 08:17 WBC RBC Hgb Hct MCV MCH MCHC RDW Plt Count Seg Neutrophils % Lymphocytes % Monocytes % Eosinophils % Basophils % Absolute Neutrophils Absolute Lymphocytes Absolute Monocytes Absolute Eosinophils Absolute Basophils Sodium Potassium Chloride Carbon Dioxide Anion Gap BUN Creatinine Est GFR ( Amer) Est GFR (Non-Af Amer) Glucose Calcium Magnesium PTH Intact Urine Color YELLOW Urine Appearance CLOUDY Urine pH 5.0 Ur Specific [place] 1.014 Urine Protein 30 H Urine Glucose (UA) NEGATIVE Urine Ketones NEGATIVE Urine Blood SMALL H Urine Nitrite NEGATIVE Ur Leukocyte Esterase NEGATIVE Urine WBC (Auto) 4 Urine RBC (Auto) 1 08/31/17 17:25 Troponin I < 0.012 Impressions: Chest X-Ray 09/01/17 00:00 IMPRESSION: Bilateral lower lobe consolidation-atelectasis. Small bilateral pleural effusions. Lung Scan-VQ NM 09/01/17 00:00 IMPRESSION: Indeterminate for pulmonary emboli. Profusion defects at both lung bases at the site of parenchymal opacities. Venous Doppler Study 09/01/17 17:01 IMPRESSION: NO EVIDENCE DVT OR SVT IN EITHER LEG. Assessment & Plan - Diagnosis (1) Dyspnea on exertion Is this a current diagnosis for this admission?: Yes Plan: Patient's V/Q scan demonstrated indeterminate findings for possible PE. Patient 's been continued on weight-based Lovenox. Patient during my encounter states that she is not allergic to contrast. Will have to verify this with other family members. (2) Constipation Qualifiers: Constipation type: chronic idiopathic constipation Qualified Code(s): K59.04 - Chronic idiopathic constipation Is this a current diagnosis for this admission?: Yes Plan: Continue senna. (3) Hypercalcemia Is this a current diagnosis for this admission?: Yes Plan: Pt states that she was using calcium supplements at home. (4) Hypernatremia Is this a current diagnosis for this admission?: Yes Plan: Resolved. (5) Hypoxemia Is this a current diagnosis for this admission?: Yes Plan: Contact radiology to see if we are able to premedicate patient with Benadryl prior to doing a CT with contrast. (6) Vitamin D deficiency Is this a current diagnosis for this admission?: Yes Plan: We will place on vitamin D replacement.
[2017-09-03] MEDS ORDERED: ERGOCALCIFEROL (VITAMIN D2) 50000 UNIT (1.25 MG) CAPSULE PO ONE (19:00)
[2017-09-04 05:03] LABS: HEMATOCRIT 34.2 % (36.0-47.0); HEMOGLOBIN 11.9 g/dL (12.0-15.5); HGB HCT DIFFERENCE 1.5; MEAN CORPUSCULAR HEMOGLOBIN 32.1 pg (27.0-33.4); MEAN CORPUSCULAR HGB CONC 34.9 g/dL (32.0-36.0); MEAN CORPUSCULAR VOLUME 92 fl (80-97); RED BLOOD COUNT 3.72 10^6/uL (3.72-5.28); RED CELL DISTRIBUTION WIDTH 15.5 % (11.5-14.0); WHITE BLOOD COUNT 5.6 10^3/uL (4.0-10.5)
[2017-09-04] MEDS: GABAPENTIN 100 MG CAPSULE PO SCH ×3 (05:44→22:17)
[2017-09-04] MEDS: ACETAMINOPHEN 325 MG TABLET PO PRN ×4 (08:28→22:30)
[2017-09-04] MEDS: FUROSEMIDE INJ/PF 40 MG/4 ML SDV IV SCH (09:45)
[2017-09-04] MEDS: ENOXAPARIN SODIUM INJ 80 MG/0.8 ML DISP.SYRIN SUBCUT SCH (09:45)
[2017-09-04] MEDS: FLUTICASONE NASAL SPRAY 50 MCG/SPRY 120 SPRAY/16 GM NASL SCH (09:46)
[2017-09-04] MEDS: LACTOBACILLUS ACIDOPHILUS 250 MG TAB PO SCH ×2 (09:47→18:48)
[2017-09-04] MEDS: FAMOTIDINE 20 MG TABLET PO SCH ×2 (09:47→22:17)
[2017-09-04] MEDS: SENNOSIDES/DOCUSATE 8.6-50 MG 1 EACH TABLET PO SCH ×2 (09:47→18:48)
[2017-09-04] MEDS ORDERED: DIPHENHYDRAMINE HCL 25 MG CAPSULE PO ONE (10:26)
[2017-09-04] MEDS ORDERED: FAMOTIDINE 20 MG TABLET PO ONE (10:27)
[2017-09-04] MEDS ORDERED: LIDOCAINE 5% (700 MG) TRANSDERMAL ADH..PATCH TP ONE (13:00)
--- NOTE | 2017-09-04 13:07 | RADIOLOGY REPORT (SQ) ---
EXAM DESCRIPTION: CTA CHEST COMPLETED DATE/TIME: 09/04/2017 12:28 pm REASON FOR STUDY: Concern for PE COMPARISON: 09/01/2017 radiographs. TECHNIQUE: CT scan of the chest performed using helical scanning technique with dynamic intravenous contrast injection. Images reviewed with lung, soft tissue and bone windows. Reconstructed coronal and sagittal MPR images reviewed. Additional 3 dimensional post-processing performed to develop Maximal Intensity Projection images (OK P). All images stored on PACS. All CT scanners at this facility use dose modulation, iterative reconstruction, and/or weight based d osing when appropriate to reduce radiation dose to as low as reasonably achievable (ALARA). [facility]: Dose Right [facility]: CareDose [facility]: Dose Right [facility]: Teradose 4D [facility]: [employer] CONTRAST TYPE AND DOSE: contrast/concentration: Isovue 370.00 mg/ml; Total Contrast Delivered: 65.0 ml; Total Saline Delivered: 97.0 ml Contrast bolus optimized for the pulmonary arteries. Not diagnostic for the aorta. RENAL FUNCTION: Creatinine 1.1 RADIATION DOSE: Up-to-date CT equipment and radiation dose reduction techniques were employed. CTDIv ol: 16.5 - 20.9 mGy. DLP: 633 mGy-cm. . LIMITATIONS: Extensive streak artifact from dense venous contrast. Mild motion. FINDINGS: LUNGS AND PLEURA: Extensive collapse and consolidation in the right lower lobe. Relativel y small right pleural effusion. Partial collapse and consolidation also noted in the left lower lobe . Motion artifact and subsegmental atelectasis in the upper lobes and right middle lobe. AORTA AND GREAT VESSELS: Limited assessment due to contrast bolus not optimized for the aorta. Regio nal dense contrast in the venous structures. The aortic root looks dilated at just under 4 cm. No f ocal aneurysm or dissection otherwise detected. HEART: Cardiac enlargement. No pericardial effusion. No significant coronary artery calcifications. PULMONARY ARTERIES: Limiting motion artifact and streak artifact. No embolus detected grossly. HILAR AND MEDIASTINAL STRUCTURES: No identified masses or abnormal nodes. HARDWARE: None in the chest. UPPER ABDOMEN: Ovoid left adrenal mass measures just over 2 cm, indeterminate. Probable diverticulum of the posterior gastric fundus, focal probable fluid lying anterior to the upper pole of the kidney . THYROID AND OTHER SOFT TISSUES: Nodular thyroid, slightly low density mass in the enlarged left lobe measuring just over a cm. No gross chest wall mass. BONES: Severely osteopenic. Destructive process in the 4th thoracic vertebra, extensive bone lysis w ith adjacent paraspinal mass, abnormal soft tissue measuring at least 4 cm in transverse dimension. Probable 10th thoracic vertebral body destructive lesion as well, right of midline. Otherwise, very heterogeneous bone density with age indeterminate thoracic fractures. Several expansile lytic rib le sions are also suggested on the right. 3D MIPS: Confirm above findings. OTHER: No other significant finding. IMPRESSION: 1. No gross pulmonary embolus allowing for limitations described above. 2. Bone findin gs include presumed metastatic disease/myeloma involving the thoracic spine. . Particularly evident at T4. There are also rib lesions. See description above. 3. Small right pleural effusion. Bila teral lower lobe collapse and consolidation, right greater than left. 4. Incompletely evaluated uppe r abdominal findings as above. Probable left adrenal mass and potential gastric diverticulum. COMMENT: Quality ID # [id number]: Final reports with documentation of one or more dose reduction techniques (e.g., Automated exposure control, adjustment of the mA and/or kV according to patient size, use of iterative reconstruction technique) TECHNICAL DOCUMENTATION: JOB ID: [id number] [employer]- All Rights Reserved
[2017-09-04] MEDS ORDERED: OXYCODONE-ACETAMINOPHEN 5-325 MG TABLET PO PRN (17:20)
--- NOTE | 2017-09-04 17:46 | PDOC PROGRESS REPORT ---
Subjective Progress Note for:: 09/04/17 Subjective:: Multiple family members with complaints of about pt's care. Pt's daughter was very upset with pt's cases. Pt was complaining of pain. Physical Exam Vital Signs: Temp Pulse Resp BP Pulse Ox 98.9 F 99 20 115/58 L 94 09/04/17 16:00 09/04/17 16:00 09/04/17 16:00 09/04/17 16:00 09/04/17 16:00 Pulse Oximeter Continuous Start: 08/31/17 15: 55 Freq: RTQ4 Status: Active Document 09/04/17 12:00 TPO (Rec: 09/04/17 14:09 TPO [email or web address]) Pulse Oximetry Assessment Oxygen Saturation (92-100) 96 Oxygen Flow Rate (L/min) 3 Oxygen Delivery Method Nasal Cannula Fraction of Inspired Oxygen (FIO2) 32 Equipment Usage Equipment in Use Continuous SpO2 Machine # 13 Intake & Output 09/03/17 09/04/17 09/05/17 06:59 06:59 06:59 Intake Total 550 1575 Output Total 2770 Balance 550 -1195 Weight 69.5 kg 70.2 kg General appearance: PRESENT: no acute distress, well-developed, well-nourished Head exam: PRESENT: atraumatic, normocephalic Eye exam: PRESENT: conjunctiva pink, EOMI. ABSENT: scleral icterus Ear exam: PRESENT: normal external ear exam Mouth exam: PRESENT: moist, tongue midline Neck exam: ABSENT: carotid bruit, JVD, lymphadenopathy, thyromegaly Respiratory exam: PRESENT: clear to auscultation kim. ABSENT: rales, rhonchi, wheezes Cardiovascular exam: PRESENT: RRR. ABSENT: diastolic murmur, rubs, systolic murmur Vascular exam: PRESENT: normal capillary refill GI/Abdominal exam: PRESENT: normal bowel sounds, soft. ABSENT: distended, guarding, mass, organolmegaly, rebound, tenderness Rectal exam: PRESENT: deferred Extremities exam: PRESENT: full ROM. ABSENT: calf tenderness, clubbing, pedal edema Neurological exam: PRESENT: alert, awake, oriented to person, oriented to place , oriented to time, oriented to situation, CN II-XII grossly intact. ABSENT: motor sensory deficit Psychiatric exam: PRESENT: appropriate affect, normal mood. ABSENT: homicidal ideation, suicidal ideation Skin exam: PRESENT: dry, intact, warm. ABSENT: cyanosis, rash Results Laboratory Results: 09/04/17 04:18 09/03/17 04:19 09/03/17 09/04/17 16:35 04:18 WBC 5.6 RBC 3.72 Hgb 11.9 L Hct 34.2 L MCV 92 MCH 32.1 MCHC 34.9 RDW 15.5 H Plt Count 147 L Stool Occult Blood NEGATIVE 08/31/17 17:25 Troponin I < 0.012 Impressions: Chest X-Ray 09/01/17 00:00 IMPRESSION: Bilateral lower lobe consolidation-atelectasis. Small bilateral pleural effusions. Lung Scan-VQ NM 09/01/17 00:00 IMPRESSION: Indeterminate for pulmonary emboli. Profusion defects at both lung bases at the site of parenchymal opacities. Venous Doppler Study 09/01/17 17:01 IMPRESSION: NO EVIDENCE DVT OR SVT IN EITHER LEG. Chest/Abdomen CTA 09/04/17 10:25 IMPRESSION: 1. No gross pulmonary embolus allowing for limitations described above. 2. Bone findings include presumed metastatic disease/myeloma involving the thoracic spine. . Particularly evident at T4. There are also rib lesions. See description above. 3. Small right pleural effusion. Bilateral lower lobe collapse and consolidation, right greater than left. 4. Incompletely evaluated upper abdominal findings as above. Probable left adrenal mass and potential gastric diverticulum. Assessment & Plan - Diagnosis (1) Multiple myeloma Is this a current diagnosis for this admission?: Yes Plan: Contacted Chemistry to see how to order electrophoresis, SPEP, UPEP told to call back in the morning. Have placed consult for Oncology. Will place patient on Percocets to see if this will help with patient's pain control. Patient has also been written for Lidoderm patches. Family is very concerned about medications that patient is receiving due to concern for sedation. (2) Dyspnea on exertion Is this a current diagnosis for this admission?: Yes Plan: Secondary to Bilateral Lower Lobe Collapse: Supportive care. (3) Constipation Qualifiers: Constipation type: chronic idiopathic constipation Qualified Code(s): K59.04 - Chronic idiopathic constipation Is this a current diagnosis for this admission?: Yes Plan: Secondary of Hypercalcemia due to malignancy: Will continue stool softners. (4) Hypercalcemia Is this a current diagnosis for this admission?: Yes Plan: Secondary to underlying malignancy and calcium supplements: We will continue to monitor. (5) Hypernatremia Is this a current diagnosis for this admission?: Yes Plan: Resolved. (6) Hypoxemia Is this a current diagnosis for this admission?: Yes Plan: Secondary to bilateral lower lobe collapse: Nasal cannula supportive care. (7) Vitamin D deficiency Is this a current diagnosis for this admission?: Yes Plan: Patient given dose of vitamin D for replacement however will hold due to patient having underlying malignancy. (8) Collapse of both lungs Is this a current diagnosis for this admission?: Yes Plan: Patient with bilateral lower lobe collapse seen on CT: Supportive care for now. Patient has been treated for pneumonia per family report multiple times. Due to not knowing the chronicity of bilateral lower lobe collapse lungs would be very hesitant to place chest tube due to the high probability that lungs will not reinflate. Patient will need to follow-up with pulmonary as outpatient. - Time Time Spent with patient: 25-34 minutes - Family has requested for transfer to tertiary center however have explained to family that currently the medical issues that patient has currently can be managed at this facility. Call was placed [facility] who declined patient. Call was placed to [facility] and waiting for return of call. - Inpatient Certification Medical Necessity: Need for Pain Control, Risk of Complication if Not Cared For in Hospital, Risk of Diagnosis Which Will Require Inpatient Eval/Care/Monitoring
[2017-09-05 04:31] LABS: ABSOLUTE EOSINOPHILS # (AUTO) 0.2 10^3/uL (0.0-0.6); ABSOLUTE LYMPHOCYTES (AUTO) 2.2 10^3/uL (0.5-4.7); ABSOLUTE MONOCYTES (AUTO) 0.4 10^3/uL (0.1-1.4); ABSOLUTE NEUT (AUTO) 1.8 10^3/uL (1.7-8.2); BASOPHILS % (AUTO) 0.3 % (0-2); EOSINOPHILS % (AUTO) 4.8 % (0-6); HEMATOCRIT 33.3 % (36.0-47.0); HEMOGLOBIN 11.7 g/dL (12.0-15.5); HGB HCT DIFFERENCE 1.8; LYMPHOCYTES % (AUTO) 46.4 % (13-45); MEAN CORPUSCULAR HGB CONC 35.1 g/dL (32.0-36.0); MEAN CORPUSCULAR VOLUME 91 fl (80-97); MONOCYTES % (AUTO) 9.4 % (3-13); RED BLOOD COUNT 3.65 10^6/uL (3.72-5.28); RED CELL DISTRIBUTION WIDTH 15.1 % (11.5-14.0); SEGMENTED NEUTROPHILS % (AUTO) 39.1 % (42-78); WHITE BLOOD COUNT 4.7 10^3/uL (4.0-10.5)
[2017-09-05 04:52] LABS: ANION GAP 11 (5-19); BLOOD UREA NITROGEN 16 mg/dL (7-20); CALCIUM 10.7 mg/dL (8.4-10.2); CARBON DIOXIDE 32 mmol/L (22-30); CHLORIDE 98 mmol/L (98-107); CREATININE RESULT 0.93 mg/dL (0.52-1.25); GLUCOSE 110 mg/dL (75-110); POTASSIUM 3.7 mmol/L (3.6-5.0); SODIUM 141.1 mmol/L (137-145)
[2017-09-05] MEDS: GABAPENTIN 100 MG CAPSULE PO SCH ×3 (06:33→21:30)
[2017-09-05] MEDS: ACETAMINOPHEN 325 MG TABLET PO PRN ×3 (06:33→21:30)
[2017-09-05] MEDS ORDERED: FUROSEMIDE INJ/PF 100 MG/10 ML SDV IV ONE (07:15)
--- NOTE | 2017-09-05 08:18 | PDOC CONSULTATION ---
Consultation Consult Date: 09/05/17 Attending physician:: JULIANN CABRERA Consult reason:: New onset lytic lesions spine, paraspinal mass T4, lung consolidations History of Present Illness Admission Date/PCP: 08/31/17 15:55 Patient complains of: Severe back pain, SOB, weakness History of Present Illness: 77 y/o F w/ recent hx of recurrent pneumonia, treated as outpt several times, PCP is Ese Arias [facility] [place], worsening issues w/ SOB and cough. Also hx of worsening LBP, specifically lumbar area and thoracic area also w/ R shoulder pain. This is ongoing since january. There has been 20# wt loss x 9 months. Pt had V/Q scan and venous duplex both negative, and initially could not get CT b/ c of concern of iodine allergy, ultimately this was not true allergy and pt had CTA chest eval for PE, this indicated b/l collapse and lower lobe consolidation , more evident in L lung, also bone windows indicated several lytic lesions, also destruction of t4 w/ noted paraspinal mass. Pt has had poor pain control but was reluctant to this point to take oral opiate pain meds, we discussed the use of IV pain meds but pt is reluctant to use that as well. Past Medical History Cardiac Medical History: Reports: None Pulmonary Medical History: Reports: Pneumonia Musculoskeltal Medical History: Reports: Other - muscle spasms Past Surgical History Past Surgical History: Reports: Hysterectomy Social History Information Source: Patient Lives with: Family Smoking Status: Never Smoker Frequency of Alcohol Use: None Hx Recreational Drug Use: No Drugs: None Hx Prescription Drug Abuse: No - Advance Directive Resuscitation Status: Full Code Family History Family History: CAD Parental Family History Reviewed: Yes Children Family History Reviewed: Yes Sibling(s) Family History Reviewed.: Yes Medication/Allergy Home Medications: Acetaminophen [Tylenol Extra Strength] 1 tab PO Q6HP PRN 08/31/17 Amoxicillin/Potassium Clav [Augmentin 500-125 Tablet] 1 tab PO Q12 08/31/17 Calcium Carbonate/Vitamin D3 [Os-Mahamed 250 mg with Vitamin D 125 Units] 1 tab PO DAILY 08/31/17 Doans 2 tab PO Q6 08/31/17 L.acidoph,Paracasei, B.lactis [Probiotic] 1 cap PO DAILY 08/31/17 Allergies/Adverse Reactions: iodine Allergy (Intermediate, Verified 08/31/17 12:14) Review of Systems Constitutional: PRESENT: anorexia, fatigue, weakness, weight loss Cardiovascular: PRESENT: dyspnea on exertion Respiratory: PRESENT: cough, dyspnea, sputum Musculoskeletal: PRESENT: back pain, muscle weakness Neurological: PRESENT: weakness Physical Exam Vital Signs: Temp Pulse Resp BP Pulse Ox 99.2 F 93 19 119/71 95 09/04/17 23:53 09/04/17 23:53 09/04/17 23:53 09/04/17 23:53 09/05/17 04:00 Pulse Oximeter Continuous Start: 08/31/17 15: 55 Freq: RTQ4 Status: Active Document 09/05/17 04:00 STI (Rec: 09/05/17 04:53 STI [email or web address]) Pulse Oximetry Assessment Oxygen Saturation (92-100) 95 Oxygen Flow Rate (L/min) 3.0 Oxygen Delivery Method Nasal Cannula Fraction of Inspired Oxygen (FIO2) 32 Equipment Usage Equipment in Use Continuous SpO2 Machine # [id number] Intake & Output 09/04/17 09/05/17 09/06/17 06:59 06:59 06:59 Intake Total 1575 2020 Output Total 2770 1020 Balance -1195 1000 Weight 70.2 kg 71.2 kg General appearance: PRESENT: no acute distress, well-developed, well-nourished Head exam: PRESENT: atraumatic, normocephalic Eye exam: PRESENT: conjunctiva pink, EOMI, PERRLA. ABSENT: scleral icterus Ear exam: PRESENT: normal external ear exam Mouth exam: PRESENT: moist, tongue midline Neck exam: ABSENT: carotid bruit, JVD, lymphadenopathy, thyromegaly Respiratory exam: PRESENT: clear to auscultation kim. ABSENT: rales, rhonchi, wheezes Cardiovascular exam: PRESENT: RRR. ABSENT: diastolic murmur, rubs, systolic murmur Pulses: PRESENT: normal dorsalis pedis pul Vascular exam: PRESENT: normal capillary refill GI/Abdominal exam: PRESENT: normal bowel sounds, soft. ABSENT: distended, guarding, mass, organolmegaly, rebound, tenderness Rectal exam: PRESENT: deferred Extremities exam: PRESENT: full ROM. ABSENT: calf tenderness, clubbing, pedal edema Neurological exam: PRESENT: alert, awake, oriented to person, oriented to place , oriented to time, oriented to situation, CN II-XII grossly intact. ABSENT: motor sensory deficit Psychiatric exam: PRESENT: appropriate affect, normal mood. ABSENT: homicidal ideation, suicidal ideation Skin exam: PRESENT: dry, intact, warm. ABSENT: cyanosis, rash Results Laboratory Results: 09/05/17 03:57 09/05/17 03:57 09/05/17 09/05/17 03:57 03:57 WBC 4.7 RBC 3.65 L Hgb 11.7 L Hct 33.3 L MCV 91 MCH 32.0 MCHC 35.1 RDW 15.1 H Plt Count 150 Seg Neutrophils % 39.1 L Lymphocytes % 46.4 H Monocytes % 9.4 Eosinophils % 4.8 Basophils % 0.3 Absolute Neutrophils 1.8 Absolute Lymphocytes 2.2 Absolute Monocytes 0.4 Absolute Eosinophils 0.2 Absolute Basophils 0.0 Sodium 141.1 Potassium 3.7 Chloride 98 Carbon Dioxide 32 H Anion Gap 11 BUN 16 Creatinine 0.93 Est GFR ( Amer) > 60 Est GFR (Non-Af Amer) 58 L Glucose 110 Calcium 10.7 H 08/31/17 17:25 Troponin I < 0.012 Impressions: Chest X-Ray 09/01/17 00:00 IMPRESSION: Bilateral lower lobe consolidation-atelectasis. Small bilateral pleural effusions. Lung Scan-VQ NM 09/01/17 00:00 IMPRESSION: Indeterminate for pulmonary emboli. Profusion defects at both lung bases at the site of parenchymal opacities. Venous Doppler Study 09/01/17 17:01 IMPRESSION: NO EVIDENCE DVT OR SVT IN EITHER LEG. Chest/Abdomen CTA 09/04/17 10:25 IMPRESSION: 1. No gross pulmonary embolus allowing for limitations described above. 2. Bone findings include presumed metastatic disease/myeloma involving the thoracic spine. . Particularly evident at T4. There are also rib lesions. See description above. 3. Small right pleural effusion. Bilateral lower lobe collapse and consolidation, right greater than left. 4. Incompletely evaluated upper abdominal findings as above. Probable left adrenal mass and potential gastric diverticulum. Status: Image reviewed by me Assessment & Plan - Diagnosis (1) Spinal cord mass Is this a current diagnosis for this admission?: Yes Plan: paraspinal mass t4, overall picture concerning for metastatic dx, although primary myelomatous lesion possible, SPEP/LOCO/QUIGs/Serum free light chain pending. Coags done this am. Will discuss w/ radiology about possible bx of mass. Discussed pain control w/ pt and she wanted me to speak with her son first. Have placed call to son, Ernesto, awaiting callback. (2) Collapse of both lungs Is this a current diagnosis for this admission?: Yes Plan: I am concerned possibly about a primary lung ca, although pt is nonsmoker, with other findings this would be more likely. Will d/w pulmonology about possible bronchoscopy. - Time Time Spent: Greater than 70 Minutes Critical Time spent with patient: 35 or more minutes - Inpatient Certification Based on my medical assessment, after consideration of the patient's comorbidities, presenting symptoms, or acuity I expect that the services needed warrant INPATIENT care.: Yes I certify that my determination is in accordance with my understanding of Medicare's requirements for reasonable and necessary INPATIENT services [42 CFR 412.3e].: Yes Medical Necessity: Need For IV Fluids, Need for Pain Control, Need for IV Antibiotics, Need for Surgery
[2017-09-05 09:32] LABS: PARTIAL THROMBOPLASTIN TIME 35.9 SEC (23.5-35.8); PROTHROMBIN TIME 14.3 SEC (11.4-15.4)
[2017-09-05] MEDS ORDERED: LIDOCAINE 5% (700 MG) TRANSDERMAL ADH..PATCH TP SCH ×2 (10:00)
[2017-09-05] MEDS: SENNOSIDES/DOCUSATE 8.6-50 MG 1 EACH TABLET PO SCH ×2 (11:00→17:52)
[2017-09-05] MEDS: LACTOBACILLUS ACIDOPHILUS 250 MG TAB PO SCH ×2 (11:00→17:52)
[2017-09-05] MEDS: FAMOTIDINE 20 MG TABLET PO SCH ×2 (11:01→21:30)
[2017-09-05] MEDS ORDERED: FUROSEMIDE INJ/PF 100 MG/10 ML SDV ONE (11:09)
[2017-09-05] MEDS: FLUTICASONE NASAL SPRAY 50 MCG/SPRY 120 SPRAY/16 GM NASL SCH (11:12)
--- NOTE | 2017-09-05 11:47 | PDOC PROGRESS REPORT ---
Subjective Progress Note for:: 09/05/17 Subjective:: Pt states that she refused to take percocet overnight. Pt states that she is having back pain. Nursing states that pt has been stable otherwise. Physical Exam Vital Signs: Temp Pulse Resp BP Pulse Ox 99.2 F 84 16 119/71 93 09/04/17 23:53 09/05/17 08:10 09/05/17 08:10 09/04/17 23:53 09/05/17 08:10 Pulse Oximeter Continuous Start: 08/31/17 15: 55 Freq: RTQ4 Status: Active Document 09/05/17 08:10 [facility] (Rec: 09/05/17 11:11 [facility] [email or web address]) Pulse Oximetry Assessment Oxygen Saturation (92-100) 93 Oxygen Flow Rate (L/min) 3 Oxygen Delivery Method Nasal Cannula Equipment Usage Equipment in Use Continuous SpO2 Machine # 13 Intake & Output 09/04/17 09/05/17 09/06/17 06:59 06:59 06:59 Intake Total 1575 2020 Output Total 2770 1020 Balance -1195 1000 Weight 70.2 kg 71.2 kg General appearance: PRESENT: no acute distress, well-developed, well-nourished Head exam: PRESENT: atraumatic, normocephalic Eye exam: PRESENT: conjunctiva pink, EOMI. ABSENT: scleral icterus Ear exam: PRESENT: normal external ear exam Mouth exam: PRESENT: moist, tongue midline Neck exam: ABSENT: carotid bruit, JVD, lymphadenopathy, thyromegaly Respiratory exam: PRESENT: other - diminished at bases bilaterally, fair air movement upper lobes. Cardiovascular exam: PRESENT: RRR. ABSENT: diastolic murmur, rubs, systolic murmur Pulses: PRESENT: normal dorsalis pedis pul GI/Abdominal exam: PRESENT: normal bowel sounds, soft. ABSENT: distended, guarding, mass, organolmegaly, rebound, tenderness Rectal exam: PRESENT: deferred Extremities exam: PRESENT: full ROM. ABSENT: calf tenderness, clubbing, pedal edema Neurological exam: PRESENT: alert, awake, oriented to person, oriented to place , oriented to time, oriented to situation, CN II-XII grossly intact. ABSENT: motor sensory deficit Psychiatric exam: PRESENT: appropriate affect, normal mood. ABSENT: homicidal ideation, suicidal ideation Skin exam: PRESENT: dry, intact, warm. ABSENT: cyanosis, rash Results Laboratory Results: 09/05/17 03:57 09/05/17 03:57 09/05/17 09/05/17 03:57 03:57 WBC 4.7 RBC 3.65 L Hgb 11.7 L Hct 33.3 L MCV 91 MCH 32.0 MCHC 35.1 RDW 15.1 H Plt Count 150 Seg Neutrophils % 39.1 L Lymphocytes % 46.4 H Monocytes % 9.4 Eosinophils % 4.8 Basophils % 0.3 Absolute Neutrophils 1.8 Absolute Lymphocytes 2.2 Absolute Monocytes 0.4 Absolute Eosinophils 0.2 Absolute Basophils 0.0 Sodium 141.1 Potassium 3.7 Chloride 98 Carbon Dioxide 32 H Anion Gap 11 BUN 16 Creatinine 0.93 Est GFR ( Amer) > 60 Est GFR (Non-Af Amer) 58 L Glucose 110 Calcium 10.7 H 08/31/17 17:25 Troponin I < 0.012 Impressions: Chest X-Ray 09/01/17 00:00 IMPRESSION: Bilateral lower lobe consolidation-atelectasis. Small bilateral pleural effusions. Lung Scan-VQ NM 09/01/17 00:00 IMPRESSION: Indeterminate for pulmonary emboli. Profusion defects at both lung bases at the site of parenchymal opacities. Venous Doppler Study 09/01/17 17:01 IMPRESSION: NO EVIDENCE DVT OR SVT IN EITHER LEG. Chest/Abdomen CTA 09/04/17 10:25 IMPRESSION: 1. No gross pulmonary embolus allowing for limitations described above. 2. Bone findings include presumed metastatic disease/myeloma involving the thoracic spine. . Particularly evident at T4. There are also rib lesions. See description above. 3. Small right pleural effusion. Bilateral lower lobe collapse and consolidation, right greater than left. 4. Incompletely evaluated upper abdominal findings as above. Probable left adrenal mass and potential gastric diverticulum. Assessment & Plan - Diagnosis (1) Multiple myeloma Is this a current diagnosis for this admission?: Yes Plan: Contact Dr. Stuart who is agreed to accept patient at [place]. Dr. Stuart did request MRI of spine. Order for MRI of cervical thoracic and lumbar spine ordered. Patient's son Ernesto Morgan has been made aware of patient's CT findings and plan to transfer to [place]. Mr. Ernesto Morgan requested that I contact Dr. Sam Waite cousin. (2) Dyspnea on exertion Is this a current diagnosis for this admission?: Yes Plan: Secondary to Bilateral Lower Lobe Collapse: Supportive care. (3) Constipation Qualifiers: Constipation type: chronic idiopathic constipation Qualified Code(s): K59.04 - Chronic idiopathic constipation Is this a current diagnosis for this admission?: Yes Plan: Secondary of Hypercalcemia due to malignancy: Will continue stool softners. (4) Hypercalcemia Is this a current diagnosis for this admission?: Yes Plan: Secondary to underlying malignancy and calcium supplements: We will continue to monitor. (5) Hypernatremia Is this a current diagnosis for this admission?: Yes Plan: Resolved (6) Hypoxemia Is this a current diagnosis for this admission?: Yes Plan: Patient currently on 3 L nasal cannula (7) Vitamin D deficiency Is this a current diagnosis for this admission?: Yes Plan: We will need to be addressed once more information is known about patient's malignancy. (8) Collapse of both lungs Is this a current diagnosis for this admission?: Yes Plan: Patient with bilateral lower lobe collapse seen on CT: Supportive care for now. Patient has been treated for pneumonia per family report multiple times. Due to not knowing the chronicity of bilateral lower lobe collapse lungs would be very hesitant to place chest tube due to the high probability that lungs will not reinflate. - Time Time Spent with patient: 25-34 minutes
[2017-09-05] MEDS ORDERED: HYDROMORPHONE HCL INJ/PF 2 MG/ML AMPULE IV PRN (16:26)
--- NOTE | 2017-09-05 17:39 | PDOC TRANSFER SUMMARY ---
General Admission Date/PCP: 08/31/17 15:55 Admission Date: 08/31/17 Transfer Date: 09/05/17 Accepting Facility: [facility] Accepting Physician: Dr. Stuart Resuscitation Status: Full Code - Transfer Diagnosis (1) Multiple myeloma Is this a current diagnosis for this admission?: Yes Diagnosis Summary: Suspect multiple myeloma with vertebral involvement: Spoke to [facility] Dr. Stuart has accepted patient. Have ordered for MRI of cervical, thoracic, lumbar which at time of dictating this note are still pending. Radiology states that they would only be able to do 2 MRIs today therefore cervical and thoracic were selected for today. If patient is here tomorrow will order MRI of lumbar spine. (2) Dyspnea on exertion Is this a current diagnosis for this admission?: Yes Diagnosis Summary: Secondary to bilateral lower lobe collapse with consolidation right greater than left secondary to malignancy: Supportive care. Patient is on 2-3 L satting in the 90s. (3) Constipation Is this a current diagnosis for this admission?: Yes Diagnosis Summary: Resolved. (4) Hypercalcemia Is this a current diagnosis for this admission?: Yes Diagnosis Summary: Patient has been receiving Lasix periodically which is helped keep calcium around 10.7-10.8. (5) Hypernatremia Is this a current diagnosis for this admission?: Yes Diagnosis Summary: Resolved (6) Hypoxemia Is this a current diagnosis for this admission?: Yes Diagnosis Summary: Compared to bilateral lower lobe collapse with consolidation right greater than left due to suspected malignancy: Continue nasal cannula. (7) Vitamin D deficiency Is this a current diagnosis for this admission?: Yes Diagnosis Summary: We will need to be addressed once more information is known about patient's malignancy. (8) Collapse of both lungs Is this a current diagnosis for this admission?: Yes Diagnosis Summary: Secondary to malignancy: Patient currently stable on 2-3 L nasal cannula. At current time we do not have pulmonary here this could be something that [facility] could further evaluate at their facility. Of note family states that patient's been diagnosed with pneumonia several times as outpatient therefore bilateral lobe collapse may not reinflate if intervention is pursued - Transfer Medications Home Medications: Acetaminophen [Tylenol Extra Strength] 1 tab PO Q6HP PRN 08/31/17 Amoxicillin/Potassium Clav [Augmentin 500-125 Tablet] 1 tab PO Q12 08/31/17 Calcium Carbonate/Vitamin D3 [Os-Mahamed 250 mg with Vitamin D 125 Units] 1 tab PO DAILY 08/31/17 Doans 2 tab PO Q6 08/31/17 L.acidoph,Paracasei, B.lactis [Probiotic] 1 cap PO DAILY 08/31/17 Transfer Medications: Current Medications Acetaminophen (Tylenol 325 Mg Tablet) 650 mg PO Q4HP PRN PRN Reason: Temperature greater than 101F Stop: 09/30/17 15:53 Last Admin: 09/05/17 11:01 Dose: 650 mg Famotidine (Pepcid 20 Mg Tablet) 20 mg PO Q12 BRITTANEY Stop: 09/30/17 21:59 Last Admin: 09/05/17 11:01 Dose: 20 mg Fluticasone Propionate (Flonase Nasal Morton 50 Mcg/Morton 16 Gm) 2 spray NASL DAILY BRITTANEY Stop: 10/03/17 09:59 Last Admin: 09/05/17 11:12 Dose: 2 spray Gabapentin (Neurontin 100 Mg Capsule) 100 mg PO Q8 BRITTANEY Stop: 09/30/17 21:59 Last Admin: 09/05/17 16:40 Dose: 100 mg Hydromorphone HCl (Dilaudid Inj/Pf 2 Mg/Ml Ampule) 0.5 mg IV Q3HP PRN PRN Reason: FOR PAIN Stop: 09/12/17 16:25 Last Admin: 09/05/17 16:36 Dose: 0.5 mg Lactobacillus Acidophilus (Bacid 250 Mg Tablet) 250 mg PO BID BRITTANEY Stop: 10/01/17 09:59 Last Admin: 09/05/17 11:00 Dose: 250 mg Levalbuterol HCl (Xopenex Neb 1.25 Mg/3 Ml Ampul) 1.25 mg NEB RTQ2HP PRN PRN Reason: SHORTNESS OF BREATH Stop: 09/30/17 15:53 Lidocaine (Lidoderm 5% (700 Mg) Transdermal Patch) 4 patch TP DAILY BRITTANEY Stop: 10/05/17 09:59 Last Admin: 09/05/17 11:17 Dose: 4 patch Pharmacy Profile Note (Medication Communication Order) 1 each MC QHS BRITTANEY Stop: 10/05/17 21:59 Senna/Docusate Sodium (Senna Plus Tablet) 1 each PO BID BRITTANEY Stop: 10/01/17 09:59 Last Admin: 09/05/17 11:00 Dose: 1 each Sodium Chloride (Saline Flush 2.5 Ml Monoject Prefil Syrin) 2.5 ml IV Q8 BRITTANEY Stop: 09/30/17 21:59 Last Admin: 09/05/17 16:38 Dose: 2.5 ml - Allergies Allergies/Adverse Reactions: iodine Allergy (Intermediate, Verified 08/31/17 12:14) - Diet/Activity Discharge Diet: Regular Hospital Course Hospital Course: Patient is 77-year-old female that was admitted to our facility due to shortness of breath. In the emergency room a d-dimer was obtained which was abnormal. Due to patient reporting history of allergy to iodine radiology had declined to do patient CTA to evaluate for PE. Patient had a VQ scan that read as indeterminate. Patient was placed on weight-based Lovenox until further evaluation could be performed. When I became involved in patient's care question patient about the iodine allergy. Patient reported that she has a shellfish allergy and has never had problems with contrast in the past. This information was conveyed to radiology and we were able to proceed forward with getting a CTA for PE evaluation. CTA demonstrated no evidence of PE however did demonstrate a significant destructive disease involving T4 vertebrae with mass present paraspinal. Oncology was consulted who spoke to radiology about performing biopsy here however radiologist stated that they would not be to perform the biopsy due to the mass involving the vertebrae with concerned that it could be affecting the spinal cord. Of note patient has only complained of back pain. Patient has not complained of decreased strength in lower extremities bowel or urinary incontinence. SPEP UPEP and electrophoresis have been ordered at our facility due to patient not transferring within the next day or 2. Patient was noted to have a total protein of 9.8 calcium level of 10.8 which is suggestive of possible multiple myeloma. Reason for transfer is that we are unable to perform the biopsy here due to not having neurosurgery if complication were to care and oncology feels that patient most likely would benefit from radiation immediately once biopsy and diagnosis has been confirmed to help with symptom control and to try to see if progression can be slowed down of her spinal mass. Physical Exam Vital Signs: Temp Pulse Resp BP Pulse Ox 99.2 F 84 16 119/71 94 09/04/17 23:53 09/05/17 08:10 09/05/17 08:10 09/04/17 23:53 09/05/17 12:00 Pulse Oximeter Continuous Start: 08/31/17 15: 55 Freq: RTQ4 Status: Active Document 09/05/17 12:00 [facility] (Rec: 09/05/17 14:33 [facility] [email or web address]) Pulse Oximetry Assessment Oxygen Saturation (92-100) 94 Oxygen Flow Rate (L/min) 3 Oxygen Delivery Method Nasal Cannula Equipment Usage Equipment in Use Continuous SpO2 Machine # [id number] Intake & Output 09/04/17 09/05/17 09/06/17 06:59 06:59 06:59 Intake Total 1575 2019 Output Total 2770 1020 Balance -1195 1000 Weight 70.2 kg 71.2 kg General appearance: PRESENT: mild distress, well-developed, well-nourished Head exam: PRESENT: atraumatic, normocephalic Eye exam: PRESENT: conjunctiva pink, EOMI. ABSENT: scleral icterus Ear exam: PRESENT: normal external ear exam Mouth exam: PRESENT: moist, tongue midline Neck exam: PRESENT: carotid bruit Respiratory exam: PRESENT: clear to auscultation kim. ABSENT: rales, rhonchi, wheezes Cardiovascular exam: PRESENT: RRR. ABSENT: diastolic murmur, rubs, systolic murmur Pulses: PRESENT: normal dorsalis pedis pul Vascular exam: PRESENT: normal capillary refill Rectal exam: PRESENT: deferred Neurological exam: PRESENT: alert, awake, oriented to person, oriented to place , oriented to time, oriented to situation, CN II-XII grossly intact. ABSENT: motor sensory deficit Psychiatric exam: PRESENT: appropriate affect, normal mood. ABSENT: homicidal ideation, suicidal ideation Skin exam: PRESENT: dry, intact, warm. ABSENT: cyanosis, rash Results Laboratory Results: 09/05/17 03:57 09/05/17 03:57 09/05/17 09/05/17 03:57 03:57 WBC 4.7 RBC 3.65 L Hgb 11.7 L Hct 33.3 L MCV 91 MCH 32.0 MCHC 35.1 RDW 15.1 H Plt Count 150 Seg Neutrophils % 39.1 L Lymphocytes % 46.4 H Monocytes % 9.4 Eosinophils % 4.8 Basophils % 0.3 Absolute Neutrophils 1.8 Absolute Lymphocytes 2.2 Absolute Monocytes 0.4 Absolute Eosinophils 0.2 Absolute Basophils 0.0 Sodium 141.1 Potassium 3.7 Chloride 98 Carbon Dioxide 32 H Anion Gap 11 BUN 16 Creatinine 0.93 Est GFR ( Amer) > 60 Est GFR (Non-Af Amer) 58 L Glucose 110 Calcium 10.7 H 08/31/17 17:25 Troponin I < 0.012 Impressions: Chest X-Ray 09/01/17 00:00 IMPRESSION: Bilateral lower lobe consolidation-atelectasis. Small bilateral pleural effusions. Lung Scan-VQ NM 09/01/17 00:00 IMPRESSION: Indeterminate for pulmonary emboli. Profusion defects at both lung bases at the site of parenchymal opacities. Venous Doppler Study 09/01/17 17:01 IMPRESSION: NO EVIDENCE DVT OR SVT IN EITHER LEG. Chest/Abdomen CTA 09/04/17 10:25 IMPRESSION: 1. No gross pulmonary embolus allowing for limitations described above. 2. Bone findings include presumed metastatic disease/myeloma involving the thoracic spine. . Particularly evident at T4. There are also rib lesions. See description above. 3. Small right pleural effusion. Bilateral lower lobe collapse and consolidation, right greater than left. 4. Incompletely evaluated upper abdominal findings as above. Probable left adrenal mass and potential gastric diverticulum.
--- NOTE | 2017-09-05 19:57 | RADIOLOGY REPORT (SQ) ---
EXAM DESCRIPTION: MRI THORACIC SPINE COMBO COMPLETED DATE/TIME: 09/05/2017 7:30 pm REASON FOR STUDY: concern for Malignancy COMPARISON: CTA chest dated 09/04/2017. TECHNIQUE: Sagittal and Axial imaging includes T1, T2, STIR and gradient echo sequences. T1 post ga dolinium sequences. CONTRAST TYPE AND DOSE: 10 mL Prohance. RENAL FUNCTION: GFR > 60. LIMITATIONS: Motion artifact. FINDINGS: LOCALIZER: No worrisome findings. ALIGNMENT: Normal. VERTEBRAE: Marked collapse of the T4 vertebral body. Extensive enhancing soft tissue mass involving the T4 vertebral body and adjacent portions of T5. Soft tissue extends anteriorly in the paravertebr al and prevertebral soft tissues. There is also soft tissue extending posteriorly into the spinal ca nal with impingement upon the thoracic cord. There are also compression deformities of T7 and T10. BONE MARROW: Heterogenous marrow replacement and enhancement. Most extensive involvement centers on the T4 and T5 vertebral bodies. HARDWARE: None in the spine. CORD: Normal in size and signal intensity. SOFT TISSUES: No soft tissue masses. THORACIC DISCS T1-T12: No significant spinal stenosis or exit foraminal stenosis. LOWER CERVICAL: Incompletely imaged. No significant spinal stenosis or exit foraminal stenosis. UPPER LUMBAR: Incompletely imaged. No significant spinal stenosis or exit foraminal stenosis. ENHANCEMENT: No abnormal enhancement. OTHER: No other significant finding. IMPRESSION: EXTENSIVE BONY METASTATIC INVOLVEMENT. FINDINGS MOST PRONOUNCED AT T4 WITH EXTENSIVE SO FT TISSUE MASS. SOFT TISSUE MASS EXTENDING POSTERIORLY INTO THE SPINAL CANAL RESULTS IN IMPINGEMENT AND COMPRESSION UPON THE THORACIC CORD. COMMENT: The patient was transferred to another treating facility shortly after the scan was perform ed. TECHNICAL DOCUMENTATION: JOB ID: [id number]- All Rights Reserved
--- NOTE | 2017-09-05 20:02 | RADIOLOGY REPORT (SQ) ---
EXAM DESCRIPTION: MRI CERVICAL SPINE COMBO COMPLETED DATE/TIME: 09/05/2017 7:30 pm REASON FOR STUDY: concern for Malignancy COMPARISON: None. TECHNIQUE: Sagittal and Axial imaging includes T1, T2, STIR and gradient echo sequences. T1 post chinmay olinium sequences. CONTRAST TYPE AND DOSE: 10 mL Prohance. RENAL FUNCTION: GFR > 60. LIMITATIONS: Motion artifact. FINDINGS: ALIGNMENT: Normal. VERTEBRAE: Intact. BONE MARROW: Heterogenous marrow signal, most noticeable in the C2 and C4 vertebral bodies but involv ing other cervical vertebrae as well. DISCS: Normal. No significant abnormal signal or loss of height. HARDWARE: None in the spine. CORD AND BASE OF BRAIN: Normal in size and signal intensity. SOFT TISSUES: No soft tissue masses. C1-C2: No significant spinal stenosis. C2-C3: No significant spinal stenosis or exit foraminal stenosis. C3-C4: Mild posterior disc and osteophyte. No significant spinal stenosis or exit foraminal stenosis . C4-C5: Mild posterior disc and osteophyte. No significant spinal stenosis or exit foraminal stenosis . C5-C6: Mild posterior disc and osteophyte. No significant spinal stenosis or exit foraminal stenosis . C6-C7: No significant spinal stenosis or exit foraminal stenosis. C7-T1: No significant spinal stenosis or exit foraminal stenosis. UPPER THORACIC: See report of the separate MRI of the thoracic spine. ENHANCEMENT: No abnormal enhancement. OTHER: No other significant finding. IMPRESSION: 1. MILD DEGENERATIVE CHANGES IN THE CERVICAL SPINE. NO SIGNIFICANT STENOSIS OR IMPINGEMENT. NO ACUT E FINDINGS. 2. HETEROGENOUS MARROW SIGNAL CONSISTENT WITH METASTATIC INVOLVEMENT. NO EVIDENCE OF COMPROMISE OF T HE SPINAL CANAL OR COMPRESSION OF THE CERVICAL CORD. 3. FINDINGS IN THE THORACIC SPINE ARE REPORTED IN THE SEPARATE MRI OF THE THORACIC SPINE. COMMENT: The patient was transferred to another treatment facility shortly after the scan was perfor [facility]. TECHNICAL DOCUMENTATION: JOB ID: [id number]- All Rights Reserved
[2017-09-05 21:16] VITALS: BP 126/75
[2017-09-05] MEDS ORDERED: PHARMACY COMMUNICATION ORDER MC SCH (22:00)
[2017-09-06 14:41] LABS: FREE KAPPA LIGHT CHAINS 812.1 mg/L (3.3-19.4); FREE LAMBDA LIGHT CHAINS 10.6 mg/L (5.7-26.3)
[2017-09-06 14:55] LABS: KAPPA LAMBDA RATIO 76.61 (0.26-1.65)
[2017-09-08 16:37] LABS: IMMUNOGLOBULIN G 672 mg/dL (700-1600)
[2017-09-09 11:51] LABS: IMMUNOGLOBULIN A 3073 mg/dL (64-422)
[2017-09-09 16:39] LABS: ALPHA-1-GLOBULIN 0.3 g/dL (0.0-0.4); ALPHA-2-GLOBULIN 3 0.5 g/dL (0.4-1.0); BETA GLOBULIN 4.1 g/dL (0.7-1.3); GLOBULIN TTL 5.6 g/dL (2.2-3.9); IMMUNOGLOBULIN G 701 mg/dL (700-1600); IMMUNOGLOBULIN M 27 mg/dL (26-217); MONOCLONAL-SPIKE 3.5 g/dL (Not Observed); PROTEIN TOTAL SERUM 8.5 g/dL (6.0-8.5)
[2017-09-10 13:43] LABS: IMMUNOGLOBULIN A 3015 mg/dL (64-422)
== END 2017-09-05 22:40 | disposition short-term general hospital (02) | DRG 194 ==
LOC: ER 11:53 → EH 15:55 → UNDOADMIN 16:20 → 4N 18:49
PROVIDERS: ADMIT Internal Medicine; ATTEND Internal Medicine
PROC: 3E0F73Z Introduction of Anti-inflammatory into Respiratory Tract, Via Natural or Artificial Opening (ICD-10-PCS; principal; 2017-09-01)
DX: J18.9 Pneumonia, unspecified organism (principal); C90.00 Multiple myeloma not having achieved remission; E87.0 Hyperosmolality and hypernatremia; J98.19 Other pulmonary collapse; E83.52 Hypercalcemia; R09.02 Hypoxemia; E55.9 Vitamin D deficiency, unspecified; K59.04 Chronic idiopathic constipation; Z79.899 Other long term (current) drug therapy; Z91.041 Radiographic dye allergy status; Z91.013 Allergy to seafood; Z90.710 Acquired absence of both cervix and uterus; Z82.49 Family history of ischemic heart disease and other diseases of the circulatory system
CPT/HCPCS: 36415; 36600; 71010; 71020; 71275; 72156; 72157; 78580; 80048; 80053; 81001; 82272; 82306; 82330; 82397; 82550; 82553; 82652; 82784; 82803; 83735; 83880; 83883; 83970; 84100; 84484; 85025; 85027; 85379; 85610; 85730; 86320; 87040; 87077; 87086; 87088; 93306; 93970; 94762; 94799; 96365; 99285; A9540; A9577; G8978-GP; G8979-GP; J1170; J1650; J1940; J1956; J3490; Q9969

== ENCOUNTER → 2018-08-11 | Outpatient (CLI) | payer MEDICARE, OTHER ==
[2018-08-11 13:45] LABS: BLOOD UREA NITROGEN 12 mg/dL (7-20); CALCIUM 9.3 mg/dL (8.4-10.2); CARBON DIOXIDE 37 mmol/L (22-30); GLUCOSE 82 mg/dL (75-110); POTASSIUM 3.7 mmol/L (3.6-5.0)
[2018-08-11 13:51] LABS: CHLORIDE 100 mmol/L (98-107); SODIUM 141.5 mmol/L (137-145)
[2018-08-11 13:55] LABS: ANION GAP 5 (5-19)
== END ==
LOC: OD 12:45
PROVIDERS: ATTEND Internal Medicine Hematology
DX: C90.01 Multiple myeloma in remission (principal)
CPT/HCPCS: 36415; 80048

== ENCOUNTER 2018-08-26 10:01 | Emergency (ER) | payer MEDICARE, OTHER ==
[2018-08-26] MEDS ORDERED: AMIODARONE HCL INJ 150 MG/3 ML VIAL IV ONE ×2 (10:06→10:26)
[2018-08-26] MEDS ORDERED: DOPAMINE HCL/DEXTROSE 5%-WATER 800 MG/250 ML RTUINJ IV ONE (10:30)
[2018-08-26] MEDS ORDERED: NOREPINEPHRINE BITARTRATE INJ/PF 4 MG/4 ML SDV IV ONE (10:31)
[2018-08-26] MEDS ORDERED: TRANEXAMIC ACID INJ/PF 1,000 MG/10 ML SDV IV ONE ×2 (10:36→10:43)
[2018-08-26] MEDS ORDERED: AMIODARONE HCL 150 MG in DEXTROSE 5%-WATER 100 ML IV ONE (10:41)
[2018-08-26] MEDS ORDERED: DOPAMINE HCL/DEXTROSE 5%-WATER 800 MG/250 ML RTUINJ IV PRN (10:41)
--- NOTE | 2018-08-26 10:44 | ER Document Report ---
ED Resuscitation - General Chief Complaint: Cardiac Arrest Stated Complaint: CARIDAC ARREST Time Seen by Provider: 08/26/18 10:41 Notes: 78-year-old female brought in by EMS cardiac arrest. Was found on scene unresponsive. Patient has a PEG and a trach. Blood was coming out of the trach. On arrival EMS found her to be in V. fib arrest. Received shocks and CPR. Multiple rounds of epinephrine given. Patient received blood products as well as plasma as well as 3 L of normal saline. On arrival to the emergency department patient had pulses but remained unresponsive. Blood was coming out of the ET tube which was placed through the trachea TRAVEL OUTSIDE OF THE [place] IN LAST 30 DAYS: No - HPI Onset: Just prior to arrival - Related Data Allergies/Adverse Reactions: iodine Allergy (Intermediate, Verified 08/26/18 10:12) Past Medical History - General Cannot obtain history due to: Intubated - Social History Smoking Status: Smoker,Current Status Unk Frequency of alcohol use: None Lives with: Family Family History: CAD - Medical History Medical History: Other Notes: myeloma Pulmonary Medical History: Reports: Hx Pneumonia Past Surgical History: Reports: Hx Hysterectomy Review of Systems - Review of Systems -: Yes ROS unobtainable due to patient's medical condition Physical Exam - Vital signs Vitals: Resp 27 H 08/26/18 10:02 Interpretation: Hypotensive, Hypoxic - Notes Notes: Unresponsive, ill-appearing - HEENT Head: Normocephalic, Atraumatic Eyes: Normal Pupils: PERRL - Respiratory Notes: The patient has an ET tube placed through the tracheostomy site. There is visible blood coming out of the ET tube. There is equal rise and fall of chest wall with bagging. Breath sounds diminished on the right. Present on the left. - Cardiovascular Rhythm: Regular Heart sounds: Normal auscultation Murmur: No - Abdominal Inspection: Normal Distension: No distension Bowel sounds: Normal Organomegaly: No organomegaly - Extremities General upper extremity: Normal inspection General lower extremity: Normal inspection - Neurological [place] Coma Scale Eye Opening: None [place] Coma Scale Verbal: None [place] Coma Scale Motor: None [place] Coma Scale Total: 3 Notes: Trying to take breaths on her own. - Skin Skin Temperature: Warm Skin Moisture: Dry Skin Color: Normal Course - Re-evaluation Re-evalutation: 08/26/18 11:22 Central line was placed. See note below. Patient was started on levo fed, epi , dopamine, amiodarone, bicarb. Had cardiac arrest again while in the emergency department after central line was placed. Did have return of circulation after that. Spoke with the family member and he does want patient a full code at this time. Spoke with Dr. Morrison with the ICU in [facility]. We will transfer her at this time. 08/26/18 11:23 Chest X-Ray 08/26/18 10:41 IMPRESSION: 1. SUPPORT DEVICES DESCRIBED. THE AIRWAY TUBE IS IN THE RIGHT MAINSTEM BRONCHUS AND SHOULD BE WITHDRAWN BY 3 TO 4 CM. THE EMERGENCY ROOM PERSONNEL WERE NOTIFIED. 2. HAZY AIRSPACE DISEASE, RIGHT GREATER THAN LEFT. PROBABLY ASYMMETRIC PULMONARY EDEMA ALTHOUGH PNEUMONIA IS ALSO POSSIBLE. 3. BILATERAL RIB FRACTURES. ET tube was pulled back 4 cm. Breath sounds better on the right. 08/26/18 12:00 Laboratory 08/26/18 08/26/18 08/26/18 10:45 10:45 10:45 WBC 15.3 H RBC 3.64 L Hgb 11.5 L Hct 35.9 L MCV 99 H MCH 31.5 MCHC 31.9 L RDW 18.0 H Plt Count 101 L Total Counted 100 Seg Neutrophils % Not Reportable Seg Neuts % (Manual) 35 L Band Neutrophils % 16 H Lymphocytes % Not Reportable Lymphocytes % (Manual) 43 Monocytes % Not Reportable Monocytes % (Manual) 2 L Eosinophils % Not Reportable Eosinophils % (Manual) 0 Basophils % Not Reportable Basophils % (Manual) 0 Metamyelocytes % 4 H Absolute Neutrophils Not Reportable Abs Neuts (Manual) 8.4 H Absolute Lymphocytes Not Reportable Abs Lymphs (Manual) 6.6 H Absolute Monocytes Not Reportable Abs Monocytes (Manual) 0.3 Absolute Eosinophils Not Reportable Absolute Eos (Manual) 0.0 Absolute Basophils Not Reportable Abs Basophils (Manual) 0.0 Large Platelets PRESENT Platelet Comment DECREASED Hypochromasia SLIGHT Poikilocytosis 1+ Anisocytosis 2+ Mobile Cells 1+ Sodium Cancelled Potassium Cancelled Chloride Cancelled Carbon Dioxide Cancelled Anion Gap Cancelled BUN Cancelled Creatinine Cancelled Est GFR ( Amer) Cancelled Est GFR (Non-Af Amer) Cancelled Glucose Cancelled Lactic Acid 11.8 H Calcium Cancelled Total Bilirubin Cancelled Direct Bilirubin Cancelled Neonat Total Bilirubin Cancelled Neonat Direct Bilirubin Cancelled Neonat Indirect Bili Cancelled AST Cancelled ALT Cancelled Alkaline Phosphatase Cancelled Creatine Kinase Cancelled CK-MB (CK-2) Troponin I Total Protein Cancelled Albumin Cancelled 08/26/18 10:45 WBC RBC Hgb Hct MCV MCH MCHC RDW Plt Count Total Counted Seg Neutrophils % Seg Neuts % (Manual) Band Neutrophils % Lymphocytes % Lymphocytes % (Manual) Monocytes % Monocytes % (Manual) Eosinophils % Eosinophils % (Manual) Basophils % Basophils % (Manual) Metamyelocytes % Absolute Neutrophils Abs Neuts (Manual) Absolute Lymphocytes Abs Lymphs (Manual) Absolute Monocytes Abs Monocytes (Manual) Absolute Eosinophils Absolute Eos (Manual) Absolute Basophils Abs Basophils (Manual) Large Platelets Platelet Comment Hypochromasia Poikilocytosis Anisocytosis Mobile Cells Sodium Potassium Chloride Carbon Dioxide Anion Gap BUN Creatinine Est GFR ( Amer) Est GFR (Non-Af Amer) Glucose Lactic Acid Calcium Total Bilirubin Direct Bilirubin Neonat Total Bilirubin Neonat Direct Bilirubin Neonat Indirect Bili AST ALT Alkaline Phosphatase Creatine Kinase CK-MB (CK-2) 5.08 H Troponin I 0.293 Total Protein Albumin - Vital Signs Vital signs: Temp Pulse Resp BP Pulse Ox 92.3 F L 93 8 L 70/52 L 85 L 08/26/18 11:25 08/26/18 10:14 08/26/18 11:25 08/26/18 11:25 08/26/18 11:12 - Laboratory Result Diagrams: 08/26/18 10:45 08/26/18 10:45 Laboratory results interpreted by me: 08/26/18 08/26/18 08/26/18 10:45 10:45 10:45 WBC 15.3 H RBC 3.64 L Hgb 11.5 L Hct 35.9 L MCV 99 H MCHC 31.9 L RDW 18.0 H Plt Count 101 L Seg Neuts % (Manual) 35 L Band Neutrophils % 16 H Monocytes % (Manual) 2 L Metamyelocytes % 4 H Abs Neuts (Manual) 8.4 H Abs Lymphs (Manual) 6.6 H Lactic Acid 11.8 H CK-MB (CK-2) 5.08 H - EKG Interpretation by Me EKG shows normal: Sinus rhythm, [place], Intervals, QRS Complexes, ST-T Waves Procedures - Central Line Left Femoral Time completed: 11:24 Central line pre-insertion: Sterile PPE donned, Chloraprep applied Central line lumen type: Triple Ultrasound guided: Yes CM at insertion site: 18 Line secured with sutures: Yes Central line post-insertion: Blood return from lumens, Biopatch applied, Sutured , Sterile dressing applied Number of attempts: 1 Complications: No Critical Care Note - Critical Care Note Total time excluding time spent on procedures (mins): 75 Discharge - Discharge Clinical Impression: Cardiac arrest Condition: Critical Disposition: [facility] Referrals: ULISES FOLEY MD [Primary Care Provider] - Follow up as needed
[2018-08-26] MEDS ORDERED: CALCIUM GLUCONATE 1000 MG/10 ML INJ IV ONE (10:55)
--- NOTE | 2018-08-26 10:59 | RADIOLOGY REPORT (SQ) ---
EXAM DESCRIPTION: CHEST SINGLE VIEW COMPLETED DATE/TIME: 08/26/2018 10:47 am REASON FOR STUDY: cardiac arrest COMPARISON: 09/01/2017. EXAM PARAMETERS: NUMBER OF VIEWS: One view. TECHNIQUE: Single frontal radiographic view of the chest acquired. RADIATION DOSE: NA LIMITATIONS: None. FINDINGS: LUNGS AND PLEURA: Diffuse hazy airspace disease, right greater than left. MEDIASTINUM AND HILAR STRUCTURES: No masses. Contour normal. HEART AND VASCULAR STRUCTURES: Heart normal in size. Normal vasculature. BONES: Bilateral rib fractures. HARDWARE: Airway tube with the tip located in the right mainstem bronchus. Tubing overlying the midl ine may be external to the patient or may be a nasogastric tube, in which case it is located in the m id chest, left of midline. OTHER: No other significant finding. IMPRESSION: 1. SUPPORT DEVICES DESCRIBED. THE AIRWAY TUBE IS IN THE RIGHT MAINSTEM BRONCHUS AND SHOULD BE WIT HDRAWN BY 3 TO 4 CM. THE EMERGENCY ROOM PERSONNEL WERE NOTIFIED. 2. HAZY AIRSPACE DISEASE, RIGHT GREATER THAN LEFT. PROBABLY ASYMMETRIC PULMONARY EDEMA ALTHOUGH PNEU MONIA IS ALSO POSSIBLE. 3. BILATERAL RIB FRACTURES. TECHNICAL DOCUMENTATION: JOB ID: [id number] [employer]- All Rights Reserved Reading location - IP/workstation name: [email or web address]
[2018-08-26 11:19] LABS: HEMATOCRIT 35.9 % (36.0-47.0); HEMOGLOBIN 11.5 g/dL (12.0-15.5); MEAN CORPUSCULAR HEMOGLOBIN 31.5 pg (27.0-33.4); MEAN CORPUSCULAR HGB CONC 31.9 g/dL (32.0-36.0); MEAN CORPUSCULAR VOLUME 99 fl (80-97); PLATELET COUNT 101 10^3/uL (150-450); RED BLOOD COUNT 3.64 10^6/uL (3.72-5.28); WHITE BLOOD COUNT 15.3 10^3/uL (4.0-10.5)
[2018-08-26 11:51] LABS: ABSOLUTE LYMPHOCYTES# (MANUAL) 6.6 10^3/uL (0.5-4.7); ABSOLUTE MONOCYTES # (MANUAL) 0.3 10^3/uL (0.1-1.4); ABSOLUTE NEUTROPHILS# (MANUAL) 8.4 10^3/uL (1.7-8.2); BASOPHILS % (MANUAL) 0 % (0-2); EOSINOPHILS % (MANUAL) 0 % (0-6); LYMPHOCYTES % (MANUAL) 43 % (13-45); MONOCYTES % (MANUAL) 2 % (3-13); PLATELET COMMENT DECREASED; SEGMENTED NEUTROPHILS % (MAN) 35 % (42-78); TOTAL CELLS COUNTED 100
[2018-08-26 11:52] LABS: PLATELET LARGE PRESENT
[2018-08-26 11:53] LABS: ANISOCYTOSIS 2+; HYPOCHROMASIA SLIGHT
[2018-08-26 11:54] LABS: BAND NEUTROPHILS % (MANUAL) 16 % (3-5); BURR CELLS 1+; POIKILOCYTOSIS 1+
[2018-08-26 11:55] LABS: CREATINE KINASE MB 5.08 ng/mL (<4.55); METAMYELOCYTES % (MANUAL) 4 % (0)
[2018-08-26 11:57] LABS: TROPONIN I 0.293 ng/mL
[2018-08-26] MEDS ORDERED: ASPIRIN 300 MG SUPP, RECTAL PR ONE (12:00)
[2018-08-26] MEDS ORDERED: NORMAL SALINE 1000 ML 1,000 ML IV ONE (12:01)
[2018-08-26 12:02] VITALS: BP 68/56
[2018-08-26] MEDS ORDERED: EPINEPHRINE INJ 1 MG/10 ML DISP.SYRIN ONE (14:22)
[2018-08-26] MEDS ORDERED: SODIUM BICARBONATE 8.4% INJ 50 MEQ/50 ML DISP.SYRIN ONE (14:22)
--- NOTE | 2018-08-26 19:51 | EKG REPORT ---
SEVERITY:- ABNORMAL ECG - ACCELERATED JUNCTIONAL RHYTHM NONSPECIFIC IVCD WITH LAD : Confirmed by: Colette Vanessa MD 26-Aug-2018 19:50:44
[2018-08-27 11:25] LABS: PATH REVIEW PATHOLOGIST REVIEWED
== END 2018-08-26 12:35 | disposition short-term general hospital (02) ==
LOC: ER 10:01
DX: I46.9 Cardiac arrest, cause unspecified (principal); Z93.0 Tracheostomy status; Z93.1 Gastrostomy status; Z87.01 Personal history of pneumonia (recurrent); Z82.49 Family history of ischemic heart disease and other diseases of the circulatory system; R58 Hemorrhage, not elsewhere classified
CPT/HCPCS: 93005; 99291; 99292; 51702; 96374; 96375; 36415; 82553; 85025; 84484; 83605; 71045; 94660; 93010; 36556; C1751; J0610; J0171; J3490 ×2